=== PATIENT | female | born 1980 | race African-American/Black ===

== ENCOUNTER 2020-06-12 12:56 | Outpatient (REF) | payer OTHER, SELFPAY | END 2020-06-12 12:57 | disposition home or self-care (01) | LOC: HO.LAB 12:56 | PROVIDERS: Visit Provider Nurse Practitioner Family | DX: Z20.828 Contact with and (suspected) exposure to other viral communicable diseases (principal); J06.9 Acute upper respiratory infection, unspecified | CPT/HCPCS: U0003 ==

== ENCOUNTER 2020-08-29 07:56 | Emergency (ER) | payer OTHER, SELFPAY ==
--- NOTE | 2020-08-29 | ECG_ITS ---
Test Reason : CHEST PAIN Blood Pressure : / mmHG Vent. Rate : 094 BPM Atrial Rate : 094 BPM P-R Int : 134 ms QRS Dur : 076 ms QT Int : 380 ms P-R-T Axes : 059 021 041 degrees QTc Int : 475 ms Normal sinus rhythm Normal ECG When compared with ECG of 16-APR-2017 14:38, No significant change was found Referred By: Generic ED Physician Electronically Signed By:LULÚ GANDARA
[2020-08-29 08:17] VITALS: BP 136/79; PULSE 100; RESP 18; TEMP 36.8; O2SAT 100; BMI 33.4
--- NOTE | 2020-08-29 10:09 | ED.CHESTPAIN ---
HPI - Chest Pain General Chief Complaint: Chest Pain Stated Complaint: chest pain Time Seen by Provider: 08/29/20 10:09 Related Data Home Medications Medication Instructions Recorded Confirmed No Known Home Meds 06/12/20 06/12/20 Allergies Allergy/AdvReac Type Severity Reaction Status Date / Time No Known Allergies Allergy Verified 08/29/20 08:15 [facility] Past Medical History Medical History (Updated 08/29/20 @ 08:19 by Rossi Katz) No known health problems Social History Social History Alcohol intake: never Smoking Status: Current every day smoker Use of substances other than those prescribed or required for medical reasons: No Advance Directives: No Advance Directives Information Provided: No Physical Exam Vital Signs: Vital Signs: Last Vital Signs Temp 98.3 F 08/29/20 08:17 Pulse 100 08/29/20 08:17 Resp 18 08/29/20 08:17 BP 136/79 08/29/20 08:17 Pulse Ox 100 08/29/20 08:17 Body Mass Index 33.4 Course Course Course Narrative: 1000-This is a rapid medical exam. 40yo female here with constant chest pain since 0300 yesterday with left arm pain and heaviness. No SOB/cough, leg swelling or pain. Will need labs, CXR, EKG. Deferred HPI, ROS, and PE to primary provider. Discharge Plan Discharge Prescriptions: No Action No Known Home Meds RF: 0
--- NOTE | 2020-08-29 10:11 | XR_ITS ---
EXAMINATION: XR CHEST CLINICAL INFORMATION: Chest pain COMPARISON: None TECHNIQUE: 2 views of the chest were obtained. FINDINGS: No significant abnormality is noted involving the heart, lungs, mediastinum, bony thorax or soft tissues. XR/XR chest 2V IMPRESSION: Unremarkable chest examination.
[2020-08-29 10:44] LABS: MANUAL DIFF FLAG NO
[2020-08-29 10:47] LABS: Basophils Percent Auto 0.6 % (0-2); Eosinophils Absolute Auto 0.2 X10*3/uL (0.0-0.4); Eosinophils Percent Auto 3.6 % (0-4); Hematocrit 39.5 % (37-47); Hemoglobin 12.3 g/dl (12.0-16.0); Imm Gran Abs Auto 0.01 X10*3/uL (0.00-0.03); Imm Gran Pct Auto 0.2 % (0.0-0.4); Lymphocytes Absolute Auto 1.7 X10*3/uL (1.2-4.9); Lymphocytes Percent Auto 34.3 % (20-40); Mean Corpuscular HGB Conc 31.1 g/dl (31.0-35.0); Mean Corpuscular Hemoglobin 27.9 pg (27.0-33.0); Mean Corpuscular Volume 89.6 fL (80-98); Mean Platelet Volume 8.8 fL (9.4-12.3); Monocytes Absolute Auto 0.3 X10*3/uL (0.1-1.2); Monocytes Percent Auto 5.8 % (2-11); Neutrophils Absolute Auto 2.8 X10*3/uL (2.0-8.3); Neutrophils Percent Auto 55.5 % (45-73); Platelet Count 334 X10*3/uL (160-400); Red Blood Count 4.41 X10*6/uL (4.20-5.50); Red Cell Distribution Width 13.7 % (11.0-16.0)
[2020-08-29 11:10] LABS: Alanine Aminotransferase 15 U/L (0-31); Albumin Level 4.1 g/dL (3.5-5.0); Alkaline Phosphatase 64 U/L (39-117); Anion Gap 11 (12-20); Aspartate Amino Transferase 39 U/L (5-31); Bilirubin Direct < 0.2 mg/dL (0.0-0.5); Bilirubin Total 0.2 mg/dL (0.0-1.0); Blood Urea Nitrogen 12 mg/dL (9-16); Calcium 8.5 mg/dL (8.4-10.2); Carbon Dioxide 23 mmol/L (22-29); Chloride 107 mmol/L (96-108); Creatinine Clr Calc Pharmacy 108.6; Estimated Glomerular Filt Rate > 60; Glucose Random 80 mg/dL (60-115); Magnesium 2.2 mg/dL (1.6-2.6); Potassium 4.5 mmol/L (3.3-5.1); Sodium 136 mmol/L (135-145); Total Protein 7.3 g/dL (6.5-8.0)
[2020-08-29 11:16] LABS: Troponin-I High Sensitivity < 3.5 ng/L (<3.5-17.0)
[2020-08-29 14:00] VITALS: BP 122/72; PULSE 82; RESP 18; TEMP 36.9; O2SAT 100
--- NOTE | 2020-08-29 14:20 | PC.NURSE ---
patient a&ox3, skin warm/dry, laboratory monitor nsr 70-80, vitals stable, pt states she has continued chest pain and lt arm heaviness/tingling- denies any trauma. will continue to monitor.
--- NOTE | 2020-08-29 14:32 | ED_ITS ---
HPI - Chest Pain General Chief Complaint: Chest Pain Stated Complaint: chest pain Time Seen by Provider: 08/29/20 10:09 Source: patient Mode of arrival: ambulatory Limitations: no limitations History of Present Illness HPI narrative: Patient presents to ED for persistent chest pain since yesterday described as chest tightness. Patient denies any swelling on lower extremities, coughing, fever, chills, rash, itchy sensation of skin, sensation of throat closing, recent trauma to the chest, breast pain, nipple discharge, headache, or dizziness. Patient denies any pleuretic chest pain. patient denies any calf pain , recent surgery, recent long travel, control pills, or history of blood clots.. MD complaint: chest pain Related Data Home Medications Medication Instructions Recorded Confirmed No Known Home Meds 06/12/20 06/12/20 Allergies Allergy/AdvReac Type Severity Reaction Status Date / Time No Known Allergies Allergy Verified 08/29/20 08:15 Review of Systems Review of Systems: Yes all other systems are reviewed and are negative Constitutional: Constitutional: Reports as per HPI and Reports no additional constitutional complaints Eyes: Eyes: Reports as per HPI and Reports no additional eye complaints ENT: Reports system reviewed and no additional complaints, except as documented and Reports as per HPI Cardiovascular: Cardiovascular: Reports as per HPI, Reports no additional cardiovascular complaints and Reports chest pain Respiratory: Respiratory: Reports as per HPI and Reports no additional respiratory complaints Gastrointestinal: Gastrointestinal: Reports as per HPI and Reports no additional gastrointestinal complaints Genitourinary: Genitourinary: Reports no additional female genitourinary complaints and Reports as per HPI Musculoskeletal: Musculoskeletal: Reports no additional musculoskeletal complaints and Reports as per HPI Neurologic: Reports system reviewed and no additional complaints, except as documented and Reports as per HPI Psychiatric: Psychiatric: Reports no additional psychiatric complaints and Reports as per HPI [facility] Past Medical History Medical History No known health problems Social History Social History Alcohol intake: never Smoking Status: Current every day smoker Use of substances other than those prescribed or required for medical reasons: No Advance Directives: No Advance Directives Information Provided: No Physical Exam Vital Signs: Vital Signs: Last Vital Signs Temp 98.5 F 08/29/20 17:31 Pulse 79 08/29/20 17:31 Resp 18 08/29/20 17:31 BP 122/78 08/29/20 17:31 Pulse Ox 100 08/29/20 17:31 Body Mass Index 33.4 Const: General: cooperative, healthy appearing, comfortable, no acute distress, well developed, alert, awake and Physically active Orientation/consciousness: patient oriented x3 HENMT: Head: Yes normal to inspection, Yes No palpable skull fracture present, Yes normocephalic, Yes atraumatic and No abrasion Eyes: General: appearance normal, both eyes and all related structures Neck: Neck: Yes normal visual inspection, Yes full ROM, Yes no lymphad enopathy, Yes no meningeal signs, Yes trachea midline, Yes supple and No tender Chest: Chest palpation & inspection: normal inspection of the chest Resp: Effort & Inspection: normal respiratory effort and able to speak in complete sentences Auscultation: clear to auscultation bilaterally Cardio: Jugular venous distension: no JVD Heart sounds: S1 normal heart sound present and S2 normal heart sound present GI: Inspection: No abdominal wall ecchymosis Palpation (GI): Soft to palpa tion, not firm, nontender, no guarding and not rigid : General: No CVA tenderness and Yes no CVA tenderness Back/Spine/Pelvis: Back: no CVA tenderness, No CVA tenderness and No back tenderness Skin: General skin exam: no rashes or lesions noted and elasticity normal Neuro: General: patient oriented x3, no meningeal signs and CN's II-XI intact bilaterally Cranial nerves: Yes CN's II-XII intact bilaterally Extrem: Other: Extremities bilaterally negative for swelling, pitting edema, redness, or calf tenderness Psych: Appearance: grossly normal, well kempt and not disheveled Course Course Course Narrative: Initial troponin is negative and EKG is normal. Will do repeat troponin, COVID avid, and D-dimer to see patient at risk of PE. Patient further denies any chest pain on inspiration, is not tachycardic, and is not hypoxic. Patient is not on any control pills. Patient will also be given GI cocktail for possible GERD exacerbation. Reevaluation(s) Reevaluation #1: Patient's 2nd troponin after having symptoms since yesterday came back negative. Patient D-dimer negative. Patient's PERC score 0. Patient is safe for discharge. Covid swab negative. Time: 16:30 MDM - Chest Pain MDM Narrative Medical decision making narrative: Atypical Chest pain Lab Data Result diagrams: 08/29/20 10:39 08/29/20 10:39 Labs: Lab Results 08/29/20 08/29/20 08/29/20 Range/Units 10:39 10:39 10:39 WBC 5.0 (4.8-10.8) X10*3/uL RBC 4.41 (4.20-5.50) X10*6/uL Hgb 12.3 (12.0-16.0) g/dl Hct 39.5 (37-47) % MCV 89.6 (80-98) fL MCH 27.9 (27.0-33.0) pg MCHC 31.1 (31.0-35.0) g/dl RDW 13.7 (11.0-16.0) % Plt Count 334 (160-400) X10*3/uL MPV 8.8 L (9.4-12.3) fL Immature Gran % (Auto) 0.2 (0.0-0.4) % Neut % (Auto) 55.5 (45-73) % Lymph % (Auto) 34.3 (20-40) % Letcher % (Auto) 5.8 (2-11) % Eos % (Auto) 3.6 (0-4) % Baso % (Auto) 0.6 (0-2) % Lymph # (Auto) 1.7 (1.2-4.9) X10*3/uL Letcher # (Auto) 0.3 (0.1-1.2) X10*3/uL Eos # (Auto) 0.2 (0.0-0.4) X10*3/uL Baso # (Auto) 0.0 (0.0-0.2) X10*3/uL Abs Immat Gran (auto) 0.01 (0.00-0.03) X10*3/uL Absolute Neuts (auto) 2.8 (2.0-8.3) X10*3/uL Absolute Nucleated RBC 0.000 (0.0-0.012) X10*3/uL Nucleated RBC % (auto) 0.0 (0.0-0.2) /100WBC PT (10.8-13.0) SEC INR (0.9-1.1) APTT (24.1-38.0) SEC D-Dimer NG/ML Sodium 136 (135-145) mmol/L Potassium 4.5 (3.3-5.1) mmol/L Chloride 107 (96-108) mmol/L Carbon Dioxide 23 (22-29) mmol/L Anion Gap 11 L (12-20) BUN 12 (9-16) mg/dL Creatinine 0.85 (0.5-1.4) mg/dL Estim Creat Clear Calc 108.6 Estimated GFR > 60 Random Glucose 80 (60-115) mg/dL Calcium 8.5 (8.4-10.2) mg/dL Magnesium 2.2 (1.6-2.6) mg/dL Total Bilirubin 0.2 (0.0-1.0) mg/dL Direct Bilirubin < 0.2 (0.0-0.5) mg/dL AST 39 H (5-31) U/L ALT 15 (0-31) U/L Alkaline Phosphatase 64 (39-117) U/L Troponin I High Sens < 3.5 (<3.5-17.0) ng/L B-Natriuretic Peptide (<100) pg/mL Total Protein 7.3 (6.5-8.0) g/dL Albumin 4.1 (3.5-5.0) g/dL Lipase 35 (8-78) U/L COVID-19 (LARA) (Negative) COVID-19 Clin Com 08/29/20 08/29/20 08/29/20 Range/Units 15:16 15:16 15:16 WBC (4.8-10.8) X10*3/uL RBC (4.20-5.50) X10*6/uL Hgb (12.0-16.0) g/dl Hct (37-47) % MCV (80-98) fL MCH (27.0-33.0) pg MCHC (31.0-35.0) g/dl RDW (11.0-16.0) % Plt Count (160-400) X10*3/uL MPV (9.4-12.3) fL Immature Gran % (Auto) (0.0-0.4) % Neut % (Auto) (45-73) % Lymph % (Auto) (20-40) % Letcher % (Auto) (2-11) % Eos % (Auto) (0-4) % Baso % (Auto) (0-2) % Lymph # (Auto) (1.2-4.9) X10*3/uL Letcher # (Auto) (0.1-1.2) X10*3/uL Eos # (Auto) (0.0-0.4) X10*3/uL Baso # (Auto) (0.0-0.2) X10*3/uL Abs Immat Gran (auto) (0.00-0.03) X10*3/uL Absolute Neuts (auto) (2.0-8.3) X10*3/uL Absolute Nucleated RBC (0.0-0.012) X10*3/uL Nucleated RBC % (auto) (0.0-0.2) /100WBC PT 11.5 (10.8-13.0) SEC INR 1.0 (0.9-1.1) APTT 40.1 H (24.1-38.0) SEC D-Dimer < 200 NG/ML Sodium (135-145) mmol/L Potassium (3.3-5.1) mmol/L Chloride (96-108) mmol/L Carbon Dioxide (22-29) mmol/L Anion Gap (12-20) BUN (9-16) mg/dL Creatinine (0.5-1.4) mg/dL Estim Creat Clear Calc Estimated GFR Random Glucose (60-115) mg/dL Calcium (8.4-10.2) mg/dL Magnesium (1.6-2.6) mg/dL Total Bilirubin (0.0-1.0) mg/dL Direct Bilirubin (0.0-0.5) mg/dL AST (5-31) U/L ALT (0-31) U/L Alkaline Phosphatase (39-117) U/L Troponin I High Sens < 3.5 (<3.5-17.0) ng/L B-Natriuretic Peptide < 10 (<100) pg/mL Total Protein (6.5-8.0) g/dL Albumin (3.5-5.0) g/dL Lipase (8-78) U/L COVID-19 (LARA) Negative (Negative) COVID-19 Clin Com See Note ECG Data ECG #1: Interpretation: Normal Sinus Rhythm VEnt Rate 94. MI 134 QTC 475. Negative stemi Discharge Plan Discharge Clinical Impression: Atypical chest pain Patient Disposition: Home, Self-Care Instructions: Chest Pain (ED) Additional Instructions: Return to the ED for worsening chest pain, coughing up blood, swelling of lower extremities, calf pain, fever, chills, shortness of breath on exertion, or any other concerning symptoms. Prescriptions: No Action No Known Home Meds RF: 0 Referrals: Rosibel Gore MD [Primary Care Provider] - 2 days (Atypical chest pain. EKG is normal. Two troponins negative. D-dimer negative. Chest x-ray negative for pneumonia. COVID swab negative. BNP negative) Stand Alone Forms: Work/School Release Interventions: ED Discharge Assessment Last Done: 08/29/20 18:39 Discharge Date/Time: 08/29/20 18:40
[2020-08-29 14:54] LABS: Lipase 35 U/L (8-78)
[2020-08-29] MEDS: Lidocaine HCl Viscous 2 % 15 ML SOLUTION MUCOUS MEM (15:18)
[2020-08-29] MEDS: PHENobarb/Hyoscy/Atropine/Scop 10 ML ELIXIR PO (15:19)
[2020-08-29] MEDS: Magnesium Hydrox/Alum Hydrox 30 ML ORAL.SUSP 15 ML PO (15:19)
[2020-08-29] MEDS: Famotidine/PF 20 MG/2 ML VIAL IVPUSH (15:20)
[2020-08-29] MEDS: Ketorolac Tromethamine 30 MG/ML VIAL IVPUSH (15:20)
--- NOTE | 2020-08-29 15:24 | PC.NURSE ---
iv inserted, labs drawn, covid swab performed, pt medicated per order, panel monitor sinus maryann to nsr 60s-70s, will continue to monitor.
[2020-08-29] MEDS: 0.9 % Sodium Chloride 1,000 ML 999 ML IV (15:25)
[2020-08-29 15:33] LABS: Prothrombin Time 11.5 SEC (10.8-13.0)
[2020-08-29 15:36] LABS: D Dimer < 200 NG/ML; Partial Thromboplastin Time 40.1 SEC (24.1-38.0)
[2020-08-29 15:55] LABS: COVID-19 Test Negative (Negative)
[2020-08-29 15:56] LABS: Troponin-I High Sensitivity < 3.5 ng/L (<3.5-17.0)
[2020-08-29 17:18] LABS: B Type Natriuretic Peptide < 10 pg/mL (<100)
[2020-08-29 17:31] VITALS: BP 122/78; PULSE 79; RESP 18; TEMP 36.9; O2SAT 100
--- NOTE | 2020-08-29 17:49 | PC.NURSE ---
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
== END 2020-08-29 18:40 | disposition home or self-care (01) ==
PROVIDERS: Nurse Practitioner Family; Physician Assistant; Emergency Provider Emergency Medicine; PCP Internal Medicine
DX: R07.89 Other chest pain (principal); F17.200 Nicotine dependence, unspecified, uncomplicated; Z71.6 Tobacco abuse counseling; Z20.822 Contact with and (suspected) exposure to COVID-19
CPT/HCPCS: 36415; 71046; 80048; 80076; 83690; 83735; 83880; 84484; 85025; 85379; 85610; 85730; 87635; 93005; 96361; 96374; 96375; 99284; J1885

== ENCOUNTER 2020-11-04 16:53 | Emergency (ER) | payer OTHER, SELFPAY ==
--- NOTE | ~2020-11-04 | XR_ITS ---
EXAMINATION: PORTABLE CHEST 1 VIEW CLINICAL INFORMATION: palpitations . COMPARISON: 08/29/2020. TECHNIQUE: Portable frontal view of the chest was obtained. FINDINGS: The lungs are well expanded. No focal infiltrate, effusion, edema, or pneumothorax. Cardiac and mediastinal silhouettes are within normal limits for technique. No acute bony abnormality seen. XR/XR chest 1V IMPRESSION: No evidence of acute disease.
[2020-11-04 19:43] VITALS: BP 139/89; PULSE 90; RESP 18; TEMP 37.1; O2SAT 100; BMI 32.5
--- NOTE | 2020-11-04 19:45 | ECG_ITS ---
Test Reason : PALIPITATIONS Blood Pressure : / mmHG Vent. Rate : 082 BPM Atrial Rate : 082 BPM P-R Int : 152 ms QRS Dur : 080 ms QT Int : 402 ms P-R-T Axes : 059 020 043 degrees QTc Int : 469 ms Normal sinus rhythm Normal ECG When compared with ECG of 29-AUG-2020 08:12, No significant change was found Referred By: Generic ED Physician Electronically Signed By:LULÚ GANDARA
[2020-11-04 20:36] LABS: MANUAL DIFF FLAG NO
[2020-11-04 20:39] LABS: Basophils Percent Auto 0.5 % (0-2); Eosinophils Absolute Auto 0.2 X10*3/uL (0.0-0.4); Eosinophils Percent Auto 3.6 % (0-4); Hematocrit 38.4 % (37-47); Hemoglobin 11.8 g/dl (12.0-16.0); Imm Gran Abs Auto 0.02 X10*3/uL (0.00-0.03); Imm Gran Pct Auto 0.3 % (0.0-0.4); Lymphocytes Absolute Auto 2.2 X10*3/uL (1.2-4.9); Lymphocytes Percent Auto 34.9 % (20-40); Mean Corpuscular HGB Conc 30.7 g/dl (31.0-35.0); Mean Corpuscular Hemoglobin 27.6 pg (27.0-33.0); Mean Corpuscular Volume 89.9 fL (80-98); Mean Platelet Volume 8.8 fL (9.4-12.3); Monocytes Absolute Auto 0.4 X10*3/uL (0.1-1.2); Monocytes Percent Auto 5.8 % (2-11); Neutrophils Absolute Auto 3.4 X10*3/uL (2.0-8.3); Neutrophils Percent Auto 54.9 % (45-73); Platelet Count 366 X10*3/uL (160-400); Red Blood Count 4.27 X10*6/uL (4.20-5.50); Red Cell Distribution Width 13.4 % (11.0-16.0); White Blood Count 6.2 X10*3/uL (4.8-10.8)
[2020-11-04 20:59] LABS: Anion Gap 10 (12-20); Blood Urea Nitrogen 10 mg/dL (9-16); Calcium 8.6 mg/dL (8.4-10.2); Carbon Dioxide 24 mmol/L (22-29); Chloride 107 mmol/L (96-108); Creatinine Clr Calc Pharmacy 123.7; Estimated Glomerular Filt Rate > 60; Glucose Random 112 mg/dL (60-115); Potassium 3.8 mmol/L (3.3-5.1); Sodium 137 mmol/L (135-145)
[2020-11-04 21:04] LABS: Troponin-I High Sensitivity < 3.5 ng/L (<3.5-17.0)
--- NOTE | 2020-11-04 21:47 | ED_ITS ---
HPI - Arrhythmia/Palpitations General Chief Complaint: Arrhythmia/Palpitations Stated Complaint: Palpitations Time Seen by Provider: 11/04/20 21:47 Source: patient Mode of arrival: ambulatory Limitations: no limitations History of Present Illness HPI narrative: 40-year-old female who was otherwise healthy walked in to the emergency department for feeling palpitation. Patient was at work checked her blood pressure was higher than her baseline and heart rate was in the 120s, patient asked to go home, patient while she was home she felt palpitation again took her heart rate was 115, patient never had chest pain or shortness of breath. Patient came to the emergency department heart rate initially was in the 90s and blood pressure was 140/89. Patient declined any recent travel or prolonged immobilization, no lower extremity swelling or blood clots. Related Data Previous Rx's Medication Instructions Recorded bupropion HCl 150 mg tablet,12 hr 150 mg PO Q12H 90 Days #180 tab 10/23/20 sustained-release Allergies Allergy/AdvReac Type Severity Reaction Status Date / Time No Known Allergies Allergy Verified 11/04/20 19:42 Review of Systems Review of Systems: All other systems are reviewed and are negative Constitutional: Reports as per HPI and Reports no additional constitutional complaints Eyes: Reports as per HPI and Reports no additional eye complaints Reports system reviewed and no additional complaints, except as documented Cardiovascular: Reports as per HPI and Reports no additional cardiovascular comp laints Respiratory: Reports as per HPI and Reports no additional respiratory complaints Gastrointestinal: Reports as per HPI and Reports no additional gastrointestinal complaints Genitourinary: Reports no additional female genitourinary complaints Musculoskeletal: Reports no additional musculoskeletal complaints Skin/Breast: Reports system reviewed and no additional complaints, except as docu Psychiatric: Reports no additional psychiatric complaints Endocrine: Reports no additional endocrine complaints Hematologic/Lymphatic: Reports no additional hematologic/lymphatic complaints Allergic/Immunologic: Reports no additional allergic/immunologic complaints Reports system reviewed and no additional complaints, except as documented and Reports Abnormal speech present [facility] Past Medical History Medical History No known health problems Social History Social History Alcohol intake: never Smoking Status: Current every day smoker Advance Directives: No Advance Directives Information Provided: Yes Physical Exam Vital Signs: Vital Signs: Last Vital Signs Temp 98.7 F 11/04/20 19:43 Pulse 90 11/04/20 19:43 Resp 18 11/04/20 19:43 BP 139/89 11/04/20 19:43 Pulse Ox 100 11/04/20 19:43 Body Mass Index 32.5 Vital signs have been reviewed as appeared to be correct. Blood pressure normal. Heart rate normal. Respiration rate normal. Temperature normal. Oxygen saturation normal. Appearance: Alert. Oriented X3. No acute distress. Head: Normal external exam. Normocephalic. Atraumatic. No Moore signs noted. No raccoon eyes noted Eyes: PERRLA. EOMI. Conjunctiva and sclera normal. Eyelids normal. ENT: TM's Normal. Pharynx normal. Uvula midline. Moist mucous membranes. No trismus noted. No drooling noted. No muffled voice noted. Neck: Normal inspection. Neck supple. FROM. No adenopathy. Thyroid Normal. No meningeal signs. No neck mass noted. CVS: Normal heart rate and rhythm. Heart sound normal. No murmurs noted. Pulses normal throughout. Respiratory: No respiratory distress. Painless inspiration. Breath sounds normal. No wheezes/rales/rhonchi noted. Chest nontender. No accessory muscle u lolita noted or decreased air movement noted. Abdomen: Soft and nontender. Bowel sounds normal in all 4 quadrants. No distention noted. No organomegaly noted. No visible injury noted. Back: No CVA tenderness. Full range of motion noted. Skin: Skin warm and dry. Normal skin color. Normal skin turgor. No rashes/lesions/lacerations noted. Extremities: No lower extremity edema. Extremities exhibit normal range of motion. Extremities nontender. Neuro: Oriented X 3. No motor deficit. No sensory deficit. Reflexes normal. Course Course Course Narrative: Assessment and plan. 40-year-old female with otherwise healthy presented for evaluation of palpitation that is already resolved. Unremarkable EKG, unremarkable labs and electrolytes. Will reassure the patient patient will need to follow up with PCP for monitoring blood pressure. HEART score is 0 MDM - Arrhythmia/Palpitations Lab Data Attestation: I reviewed the patient's lab results. Result diagrams: 11/04/20 20:27 11/04/20 20:27 Labs: Lab Results 11/04/20 11/04/20 11/04/20 Range/Units 20:27 20:27 20:27 WBC 6.2 (4.8-10.8) X10*3/uL RBC 4.27 (4.20-5.50) X10*6/uL Hgb 11.8 L (12.0-16.0) g/dl Hct 38.4 (37-47) % MCV 89.9 (80-98) fL MCH 27.6 (27.0-33.0) pg MCHC 30.7 L (31.0-35.0) g/dl RDW 13.4 (11.0-16.0) % Plt Count 366 (160-400) X10*3/uL MPV 8.8 L (9.4-12.3) fL Immature Gran % (Auto) 0.3 (0.0-0.4) % Neut % (Auto) 54.9 (45-73) % Lymph % (Auto) 34.9 (20-40) % Kleberg % (Auto) 5.8 (2-11) % Eos % (Auto) 3.6 (0-4) % Baso % (Auto) 0.5 (0-2) % Lymph # (Auto) 2.2 (1.2-4.9) X10*3/uL Kleberg # (Auto) 0.4 (0.1-1.2) X10*3/uL Eos # (Auto) 0.2 (0.0-0.4) X10*3/uL Baso # (Auto) 0.0 (0.0-0.2) X10*3/uL Abs Immat Gran (auto) 0.02 (0.00-0.03) X10*3/uL Absolute Neuts (auto) 3.4 (2.0-8.3) X10*3/uL Absolute Nucleated RBC 0.000 (0.0-0.012) X10*3/uL Nucleated RBC % (auto) 0.0 (0.0-0.2) /100WBC Hold Blue Top SEE NOTE Sodium 137 (135-145) mmol/L Potassium 3.8 (3.3-5.1) mmol/L Chloride 107 (96-108) mmol/L Carbon Dioxide 24 (22-29) mmol/L Anion Gap 10 L (12-20) BUN 10 (9-16) mg/dL Creatinine 0.76 (0.5-1.4) mg/dL Estim Creat Clear Calc 123.7 Estimated GFR > 60 Random Glucose 112 D (60-115) mg/dL Calcium 8.6 (8.4-10.2) mg/dL Troponin I High Sens (<3.5-17.0) ng/L 11/04/20 Range/Units 20:27 WBC (4.8-10.8) X10*3/uL RBC (4.20-5.50) X10*6/uL Hgb (12.0-16.0) g/dl Hct (37-47) % MCV (80-98) fL MCH (27.0-33.0) pg MCHC (31.0-35.0) g/dl RDW (11.0-16.0) % Plt Count (160-400) X10*3/uL MPV (9.4-12.3) fL Immature Gran % (Auto) (0.0-0.4) % Neut % (Auto) (45-73) % Lymph % (Auto) (20-40) % Kleberg % (Auto) (2-11) % Eos % (Auto) (0-4) % Baso % (Auto) (0-2) % Lymph # (Auto) (1.2-4.9) X10*3/uL Kleberg # (Auto) (0.1-1.2) X10*3/uL Eos # (Auto) (0.0-0.4) X10*3/uL Baso # (Auto) (0.0-0.2) X10*3/uL Abs Immat Gran (auto) (0.00-0.03) X10*3/uL Absolute Neuts (auto) (2.0-8.3) X10*3/uL Absolute Nucleated RBC (0.0-0.012) X10*3/uL Nucleated RBC % (auto) (0.0-0.2) /100WBC Hold Blue Top Sodium (135-145) mmol/L Potassium (3.3-5.1) mmol/L Chloride (96-108) mmol/L Carbon Dioxide (22-29) mmol/L Anion Gap (12-20) BUN (9-16) mg/dL Creatinine (0.5-1.4) mg/dL Estim Creat Clear Calc Estimated GFR Random Glucose (60-115) mg/dL Calcium (8.4-10.2) mg/dL Troponin I High Sens < 3.5 (<3.5-17.0) ng/L Imaging Data Chest x-ray: Radiologist's impression: No evidence of acute disease. ECG Data Interpretation: Normal sinus rhythm at 82 beats per minutes, normal axis deviation, normal intervals, no ST-T changes. Discharge Plan Discharge Clinical Impression: Palpitations Patient Disposition: Home, Self-Care Instructions: Heart Palpitations (ED) Prescriptions: No Action bupropion HCl [Wellbutrin SR] 150 mg tablet sustained-release 12 hr 150 mg PO Q12H 90 Days Qty: 180 RF: 0 Referrals: Rosibel Gore MD [Primary Care Provider] - 2 days
[2020-11-04 21:54] VITALS: BP 154/85; PULSE 84; RESP 16; O2SAT 99
[2020-11-04 22:35] LABS: Magnesium 2.2 mg/dL (1.6-2.6)
[2020-11-04 22:43] VITALS: BP 147/88; PULSE 74; RESP 16; O2SAT 99
== END 2020-11-04 22:54 | disposition home or self-care (01) ==
PROVIDERS: Emergency Provider Emergency Medicine; PCP Internal Medicine
DX: R00.2 Palpitations (principal)
CPT/HCPCS: 36415; 71045; 80048; 83735; 84484; 85025; 93005; 99283

== ENCOUNTER 2021-04-15 13:43 | Outpatient (REF) | payer OTHER, SELFPAY | END 2021-04-15 13:44 | disposition home or self-care (01) | LOC: HO.LNP 13:43 | PROVIDERS: Visit Provider Physician Assistant Medical | DX: Z20.822 Contact with and (suspected) exposure to COVID-19 (principal) | CPT/HCPCS: U0003; U0005 ==

== ENCOUNTER 2021-12-02 12:24 | Outpatient (REF) | payer OTHER, SELFPAY ==
[2021-12-02 13:32] LABS: Influenza A PCR NEGATIVE (Negative); Influenza B PCR NEGATIVE (Negative); Resp Syncy Virus RNA Qual PCR NEGATIVE (Negative); SARS COV2 PCR INHOUSE NEGATIVE (Negative)
== END 2021-12-02 12:25 | disposition home or self-care (01) ==
LOC: HO.LNP 12:24
PROVIDERS: Visit Provider Internal Medicine
DX: Z20.822 Contact with and (suspected) exposure to COVID-19 (principal); R43.9 Unspecified disturbances of smell and taste
CPT/HCPCS: 0241U

== ENCOUNTER 2021-12-30 07:42 | Outpatient (REF) | payer OTHER, SELFPAY ==
--- NOTE | ~2021-12-30 | MM_ITS ---
EXAMINATION: MM SCREENING DIGITAL BREAST TOMOSYNTHESIS, BILATERAL CLINICAL INFORMATION: Screening. Asymptomatic. The lifetime risk of breast cancer based on the Tyrer-Cuzick Model is 8%. COMPARISON: Mammography: None TECHNIQUE: Digital breast tomosynthesis is performed in both the craniocaudal and mediolateral oblique views along with computer-aided detection (CAD). Synthesized 2D images are generated from the tomosynthesis. FINDINGS: There are scattered areas of fibroglandular density (ACR BI-RADS breast composition Category b). There are no significant masses, abnormal calcifications, or other abnormalities. MM/MM tomosynthesis screening BI IMPRESSION: There are no significant changes from prior study. ASSESSMENT: BI-RADS 1: Negative RECOMMENDATION: Routine annual mammography screening. This patient's information was entered into a reminder system with a target due date for their next mammogram.
== END 2021-12-30 07:43 | disposition home or self-care (01) ==
LOC: HO.MAMMO 07:42
PROVIDERS: Visit Provider Internal Medicine
DX: Z12.31 Encounter for screening mammogram for malignant neoplasm of breast (principal)
CPT/HCPCS: 77063; 77067

== ENCOUNTER 2022-01-09 15:24 | Outpatient (REF) | payer OTHER, SELFPAY ==
[2022-01-09 17:45] LABS: TSH reflex Free T4 0.43 uIU/mL (0.32-4.0)
[2022-01-14 16:05] LABS: Vitamin D 25-OH, D2 <4 ng/mL; Vitamin D 25-OH, D3 17 ng/mL; Vitamin D 25-OH, Total 17 ng/mL (30-100)
== END 2022-01-09 15:25 | disposition home or self-care (01) ==
LOC: HO.HMGCLDS 15:24
PROVIDERS: Visit Provider Internal Medicine
DX: E55.9 Vitamin D deficiency, unspecified (principal); R00.0 Tachycardia, unspecified
CPT/HCPCS: 36415; 82306; 84443

== ENCOUNTER 2022-06-24 13:30 | Outpatient (REF) | payer OTHER, SELFPAY ==
[2022-06-24 16:30] LABS: MANUAL DIFF FLAG NO
[2022-06-24 16:35] LABS: Basophils Percent Auto 0.7 % (0-2); Eosinophils Absolute Auto 0.1 X10*3/uL (0.0-0.4); Eosinophils Percent Auto 3.7 % (0-4); Hematocrit 38.6 % (37.0-47.0); Hemoglobin 11.9 g/dl (12.0-16.0); Lymphocytes Absolute Auto 1.1 X10*3/uL (1.2-4.9); Lymphocytes Percent Auto 40.4 % (20-40); Mean Corpuscular HGB Conc 30.8 g/dl (31.0-35.0); Mean Corpuscular Hemoglobin 27.4 pg (27.0-33.0); Mean Corpuscular Volume 88.9 fL (80.0-98.0); Monocytes Absolute Auto 0.3 X10*3/uL (0.1-1.2); Monocytes Percent Auto 9.4 % (2-11); Neutrophils Absolute Auto 1.2 x10*3/uL (2.0-8.3); Neutrophils Percent Auto 45.8 % (45-73); Platelet Count 296 X10*3/uL (160-400); Red Blood Count 4.34 X10*6/uL (4.20-5.50); Red Cell Distribution Width 13.4 % (11.0-16.0); White Blood Count 2.7 X10*3/uL (4.8-10.8)
[2022-06-24 16:45] LABS: Alanine Aminotransferase 20 U/L (0-31); Albumin Level 3.8 g/dL (3.5-5.0); Alkaline Phosphatase 64 U/L (39-117); Anion Gap 12 (12-20); Aspartate Amino Transferase 41 U/L (5-31); Bilirubin Total 0.2 mg/dL (0.0-1.0); Blood Urea Nitrogen 7 mg/dL (9-16); Calcium 8.4 mg/dL (8.4-10.2); Carbon Dioxide 25 mmol/L (22-29); Chloride 102 mmol/L (96-108); Estimated Glomerular Filt Rate > 60; Glucose Random 84 mg/dL (60-115); Potassium 4.2 mmol/L (3.3-5.1); Sodium 135 mmol/L (135-145); Total Protein 6.8 g/dL (6.5-8.0)
[2022-06-29 14:53] LABS: Vitamin D 25-OH, D2 <4 ng/mL; Vitamin D 25-OH, D3 10 ng/mL; Vitamin D 25-OH, Total 10 ng/mL (30-100)
== END 2022-06-24 13:31 | disposition home or self-care (01) ==
LOC: HO.HMGCLDS 13:30
PROVIDERS: PCP Internal Medicine; Visit Provider Internal Medicine
DX: E55.9 Vitamin D deficiency, unspecified (principal); E66.09 Other obesity due to excess calories; F33.9 Major depressive disorder, recurrent, unspecified
CPT/HCPCS: 36415; 80053; 82306; 85025

== ENCOUNTER 2023-01-22 12:30 | Outpatient (REF) | payer OTHER, SELFPAY ==
--- NOTE | ~2023-01-22 | MM_ITS ---
EXAMINATION: MM SCREENING DIGITAL BREAST TOMOSYNTHESIS, BILATERAL CLINICAL INFORMATION: Screening. Asymptomatic. The lifetime risk of breast cancer based on the Tyrer-Cuzick Model is 11%. COMPARISON: Mammography: This study is compared with the prior mammogram from 2021. TECHNIQUE: Digital breast tomosynthesis is performed in both the craniocaudal and mediolateral oblique views along with computer-aided detection (CAD). Synthesized 2D images are generated from the tomosynthesis. FINDINGS: The breasts are almost entirely fatty (ACR BI-RADS breast composition Category a). There are no significant masses, abnormal calcifications, or other abnormalities. MM/MM tomosynthesis screening BI IMPRESSION: No mammographic evidence of malignancy. ASSESSMENT: BI-RADS BI-RADS 1 - Negative RECOMMENDATION: Routine annual mammography screening. 1 year F/U This patient's information was entered into a reminder system with a target due date for their next mammogram.
== END 2023-01-22 12:31 | disposition home or self-care (01) ==
LOC: HO.MAMMO 12:30
PROVIDERS: PCP Internal Medicine; Visit Provider Internal Medicine
DX: Z12.31 Encounter for screening mammogram for malignant neoplasm of breast (principal)
CPT/HCPCS: 77063; 77067

== ENCOUNTER → 2023-01-22 12:45 | Outpatient (BNV) | payer OTHER, SELFPAY | PROVIDERS: PCP Internal Medicine; Visit Provider Radiology Diagnostic Radiology | DX: Z12.31 Encounter for screening mammogram for malignant neoplasm of breast (principal) | CPT/HCPCS: 77063; 77067 ==

== ENCOUNTER 2024-01-24 12:44 | Outpatient (REF) | payer OTHER, SELFPAY | END 2024-01-24 12:45 | disposition home or self-care (01) | LOC: HO.MAMMO 12:44 | PROVIDERS: PCP Internal Medicine; Visit Provider Internal Medicine | DX: Z12.31 Encounter for screening mammogram for malignant neoplasm of breast (principal) | CPT/HCPCS: 77063; 77067 ==

== ENCOUNTER → 2024-01-24 12:45 | Outpatient (BNV) | payer OTHER, SELFPAY | PROVIDERS: PCP Internal Medicine; Visit Provider Radiology Diagnostic Radiology | DX: Z12.31 Encounter for screening mammogram for malignant neoplasm of breast (principal) | CPT/HCPCS: 77063; 77067 ==

== ENCOUNTER 2024-06-20 13:29 | Outpatient (AMB) | payer OTHER, SELFPAY ==
--- NOTE | 2024-06-20 13:30 | A.OFFPC_ITS ---
Vital Signs 06/20/24 13:31 Height 5 ft 9 in Weight 221 lb BMI 32.6 BP 124/82 Blood Pressure Location Lt brachial Position Sitting Pulse 82 Pulse Source Pulse Oximeter Pulse Oximetry (%) 98 Oxygen Delivery Method Room Air Intake Visit Reasons: Difficulty Swallowing Allergies No Known Allergies Allergy (Verified 06/20/24 13:35) Medication List - Last Reconciled 06/20/24 by Rosibel Gore MD No Known Home Meds Tobacco use date assessed: 06/20/24 Dental Screening Dental Screen Date: 06/20/24 Did you have a dental visit in the last 12 months?: Yes Did you have a dental problem in the last 6 months where you did not have access to dental care?: No Was dental information given to patient?: Patient has dentist HPI Difficulty Swallowing HPI Details Chief Complaint The patient presents with difficulty swallowing both liquids and solids over the past couple of months. Assessment and Plan 43-year-old female presenting with dysph agia affecting both liquids and solids consistently over the past few months. The dysphagia comes and goes, requiring conscious effort to swallow, and at times results in choking, especially with liquids. No sore throat or other concerning symptoms reported. The patient also noted recent weight gain linked to multiple recent family bereavements causing significant stress. A barium swallow test is ordered to evaluate structural abnormalities, with a gastroenterology consult to assess further if needed. 1. Recent Significant Family Stressors The patient reports a significant emotional impact from recent family deaths that may contribute to increased stress and weight gain. Emotional support and stress management strategies should be considered after addressing the swallowing issues. Further psychosocial counseling might be beneficial pending resolution of physical symptoms. 2. Dysphagia The patient exhibits signs of dysphagia, affecting the ingestion of both solids and liquids, with reports of choking predominantly with liquids. An evaluative barium swallow study is indicated to rule out anatomical or functional abnormalities. A referral to a site physician is made to consider possible esophagoscopy to identify any underlying issues, potentially ruling out neuro genic causes if suggested by the test. Problem List - Dysphagia - Recent significant family stressors Patient Instructions - Proceed with the barium swallow study as ordered to assess swallowing difficulties. - Follow-up with a site physician ap pointment to evaluate swallowing function and consider further diagnostic tests such as an esophagoscopy. - Monitor stress levels and try to ident yaakov and engage in stress-reducing activities or support systems. Report any unsual emotional distress or health concerns. - Await further instructions following t he results of the tests and subsequent specialist consultations. [facility] Medical History Contact with and (suspected) exposure to other viral communicable diseases No known health problems Social History Housing: House Alcohol intake: never Patient Tobacco Use Status: Current everyday Tobacco user e-Cigarette/Vaping Use: Never Used service: No Current occupational status: employed Cognitive needs: No Hearing needs: No Vision needs: No Questionnaire PHQ-9 Over the last 2 weeks, how often have you been bothered by any of the following problems? 1. Little interest or pleasure in doing things: several days 2. Feeling down, depressed, or hopeless: several days 3. Trouble falling or staying asleep, or sleeping too much: several days 4. Feeling tired or having little energy: several days 5. Poor appetite or overeating: several days 6. Feeling bad about yourself - or that you are a failure or have let yourself or your family down: several days 7. Trouble concentrating on things, such as reading the newspaper or watching television: several days 8. Moving or speaking so slowly that other people could have noticed. Or the opposite - being so fidgety or restless that you have been moving around a lot more than usual: not at all 9. Thoughts that you would be better off or of hurting yourself in some way: not at all Total score: 7 Depression Screening Interpretation: Negative Depression Screening Done: Yes 56727 - PHQ-9 Billing: Yes Source: Developed by Drs. Mega Agarwal, Jayashree Kimball, Luisito Beach and colleagues, with an educational nestor from [employer]. Thrive Questionnaire Date Thrive assessed: 06/20/24 I am a: Patient What is your living situation today?: I have a steady place to live Within the past 12 months, did the food you bought not last and you didn't have the money to get more?: Never true Within the past 12 months, did you worry whether your food would run out before you got money to buy more?: Never true Do you have trouble paying for medicines?: No Do you have trouble getting transportation to medical appointments?: No Do you have trouble paying your heating and electricity bill?: No Do you have trouble taking care of your child, family member or friend?: No Do you have trouble with day-to-day activities such as bathing, preparing meals, shopping, managing finances, etc.?: No Are you currently unemployed and looking for a job?: No Are you interested in more education?: I choose not to answer this question Please select the resources that you would like help with: None Currently or been in a relationship where the following occur: No concerns reported THRIVE Score: 0 AUDIT C Alcohol Use Questionnaire (AUDIT-C) 1. How often do you have a drink containing alcohol?: 2-4 times a month 2. How many drinks containing alcohol do you have on a typical day when you are drinking?: 1 or 2 3. How often do you have six or more drinks on one occasion?: Never Total Score: 2 Score Reviewed/Action Taken: Yes CORINE-7 AMB Questionnaire CORINE-7 Date CORINE - 7 assessed: 06/20/24 Feeling nervous, anxious, or on edge: 1 = Several days Not being able to stop or control worryin = Several days Worrying too much about different things: 1 = Several days Trouble relaxin = Several days Being so restless that it is hard to sit still: 0 = Not at all Becoming easily annoyed or irritable: 1 = Several days Feeling afraid as if something awful might happen: 1 = Several days Total CORINE-7 score (0-4 normal; 5-9 mild; 10-14 moderate; 15-21 severe): 6 Source: Developed by Drs. Mega Agarwal, Jayashree Kimball, Luisito Beach and colleagues, with an educational nestor from [employer]. Review of Systems Const Denies chills and Denies fever(s) ENT Denies epistaxis and Denies nasal discharge Card Denies chest pain Resp Denies chest congestion, Denies cough and Denies hemoptysis GI Denies diarrhea and Denies nausea Skin/Breast Denies rash Neuro Reports no additional complaints Psych Reports no additional complaints Endo Reports no additional complaints Physical exam (Primary Care) Vital Signs: Last Vital Signs Pulse 82 06/20/24 13:31 BP 124/82 06/20/24 13:31 Pulse Ox 98 06/20/24 13:31 Oxygen Delivery Method Room Air 06/20/24 13:31 BMI result Body Mass Index 32.6 Tobacco/Smoking Status: Tobacco use Status Tobacco use date assessed 06/20/24 06/20/24 13:31 Patient Tobacco Use Status Current everyday Tobacco 06/20/24 13:31 e-Cigarette/Vaping Use Never Used 06/20/24 13:31 PHQ-9: PHQ-9 Score PHQ-9: Total score 7 06/20/24 13:35 Depression Screening Interpretation: Negative Thrive Assessment: Date of Thrive Assessment Date Thrive assessed 06/20/24 06/20/24 13:31 Currently or been in a relationship where the following occur: No concerns reported Const General: cooperative, comfortable and no acute distress Orientation/consciousness: patient oriented x3 HENMT Other: Throat exam is normal Head: Yes normocephalic Eyes General: appearance normal, both eyes and all related structures Neck Neck: Yes supple Resp Effort & Inspection: normal respiratory effort, no cough and no stridor Cardio Rhythm: regular rhythm Heart sounds: S1 normal heart sound present and S2 normal heart sound present Skin General skin exam: turgor normal Neuro General: patient oriented x3, tone normal and moves all extremities Extrem Right lower extremity: no edema Left lower extremity: no edema Coding Level of Care Code Est Pt Level 4 (53158) Diagnoses Oral phase dysphagia R13.11 Dysphagia type: oral phase Additional Codes PHQ-9 - 46635 - PHQ-9 Billing: Yes ([id number]) Assessment & Plan Assessment & Plan (1) Difficulty swallowing: Code(s): R13.10 - Dysphagia, unspecified Category: Medical Qualifiers: Dysphagia type: oral phase Qualified Code(s): R13.11 - Dysphagia, oral phase Plan Chief Complaint The patient presents with difficulty swallowing both liquids and solids over the past couple of months. Assessment and Plan 43-year-old female presenting with dysphagia affecting both liquids and solids consistently over the past few months. The dysphagia comes and goes, requiring conscious effort to swallow, and at times results in choking, especially with liquids. No sore throat or other concerning symptoms reported. The patient also noted recent weight gain linked to multiple recent family bereavements causing significant stress. A barium swallow test is ordered to evaluate structural abnormalities, with a gastroenterology consult to assess further if needed. 1. Recent Significant Family Stressors The patient reports a significant emotional impact from recent family deaths that may contribute to increased stress and weight gain. Emotional support and stress management strategies should be considered after addressing the swallowing issues. Further psychosocial counseling might be beneficial pending resolution of physical symptoms. 2. Dysphagia The patient exhibits signs of dysphagia, affecting the ingestion of both solids and liquids, with reports of choking predominantly with liquids. An evaluative barium swallow study is indicated to rule out anatomical or functional abnormalities. A referral to a site physician is made to consider possible esophagoscopy to identify any underlying issues, potentially ruling out neurogenic causes if suggested by the test. Problem List - Dysphagia - Recent significant family stressors Patient Instructions - Proceed with the barium swallow study as ordered to assess swallowing difficulties. - Follow-up with a site physician appointment to evaluate swallowing function and consider further diagnostic tests such as an esophagoscopy. - Monitor stress levels and try to identify and engage in stress-reducing activities or support systems. Report any unsual emotional distress or health concerns. - Await further instructions following the results of the tests and subsequent specialist consultations. Orders: Orders [place] Modified Barium Swallow Today R13.10 - Dysphagia, unspecified Referrals Gastroenterology Referral R13.10 - Dysphagia, unspecified
[2024-06-20 13:31] VITALS: BP 124/82; PULSE 82; O2SAT 98; BMI 32.6
== END 2024-06-20 14:34 | disposition home or self-care (01) ==
PROVIDERS: PCP Internal Medicine; Visit Provider Internal Medicine
DX: R13.11 Dysphagia, oral phase (principal)

== ENCOUNTER → 2024-06-20 13:29 | Outpatient (BNVA) | payer OTHER, SELFPAY | PROVIDERS: PCP Internal Medicine; Visit Provider Internal Medicine | DX: R13.11 Dysphagia, oral phase (principal) | CPT/HCPCS: 96127; 99212 ==

== ENCOUNTER 2024-08-16 14:20 | Outpatient (REF) | payer OTHER, SELFPAY ==
--- NOTE | ~2024-08-16 | FL_ITS ---
EXAMINATION: Modified Barium Swallow CLINICAL INFORMATION: Dysphagia COMPARISON: None TECHNIQUE: Modified barium swallow was performed under lateral fluoroscopy with patient in standing position. Barium mixed with solids and liquids of different consistencies was administered by the speech pathologist. Examination was recorded in the fluoroscopy suite. FINDINGS: Trace laryngeal penetration was seen with thin consistency barium. No aspiration was observed. FLUOROSCOPY TIME: 51 seconds Number of Spot Images: N/A DOSE AREA PRODUCT: 372 uGy-m2 (microgray-meter squared) FL/FL Modified Barium Swallow IMPRESSION: 1. Trace laryngeal penetration was seen with thin consistency barium. No aspiration was observed. Refer to the speech therapy report for further clarification This procedure was performed by Mike Castillo PA-C, and supervised by Dr. Toney Electronically signed by: Jose Toney MD 08/21/2024 05:00 PM [facility]
--- NOTE | 2024-08-16 15:25 | MHC.SL.IMP ---
Date of Plan of Treatment: 08/16/24 Onset of Symptoms/Illness: 06/16/24 Date Treatment Started: 08/16/24 Admitting Diagnosis: Dysphagia Primary Speech & Language Diagnosis: R13.13 Pharyngeal Phase Dysphagia Reason for Today's Visit: 23229 Modified Barium Swallow Study Pre-evaluation Dietary Consistencies: Regular Pre-evaluation Liquid Consistency: Thin Pre-evaluation Medication Administration: Whole with Liquid Medical History: Modified Barium Swallow Study Fluoroscopic Evaluation of Swallowing Function CPT Code 90183 Evaluation Year: 2024 Reason for Study: Patient reporting discomfort and effortful swallowing. Referring Physician: Rosibel Gore MD Evaluating Clinician: Giuliana Diaz MA, CCC-HYDROTEL OPERATOR Study Number: 1 Patient Name: Gricelda James Status: Outpatient, Ambulatory Age: 44 Gender: Female Medical History N/A Current (pre-evaluation) Intake/Diet: Route: PO Diet Grade: Regular Liquid Consistencies: Thin Pre-Study Functional Oral Intake Scale (FOIS): 7- Total oral intake with no restrictions Pain: None reported at time of study SUBJECTIVE: Patient is a 44 year old female presenting with difficulty swallowing both solids and liquids consistently over the past few months. Patient reports ?feeling it go all the way down as she swallows.? She also reports discomfort and needing to exert more effort to swallow. Patient denied odynophagia and choking/coughing with PO intake. She is eating an unmodified diet. Oral Motor Exam Facial Symmetry: Symmetrical Mouth Occlusion: Normal Oral-Facial Teeth Characteristics: Intact/Normal Oral-Facial Lip Pucker Description: Normal Oral-Facial Smile (Lips) Description: Normal Oral-Facial Puff Cheeks Description: Normal Tongue Size: Normal Tongue Excursion Description: Normal Tongue Range of Movement Description: Normal Tongue Speed of Movement Description: Normal Tongue Strength of Movement (against opposing pressure): Normal Tongue Movement Characteristics: Normal/Absent Food and Liquid Trials: Oral Impairment: Lip Closure: Did not test Oral Impairment: Tongue Control During Bolus Hold: 1=Escape to lateral buccal cavity/floor of mouth (FOM) Oral Impairment: Bolus Preparation/Mastication: 0=Timely and efficient chewing and mashing Oral Impairment: Bolus Transport/Lingual Motion: 1= Delayed initiation of tongue motion Oral Impairment: Oral Residue: 1=Trace residue lining oral structures Oral Impairment:Initiation of Pharyngeal Swallow: 1=Bolus head in valleculae Pharyngeal Impairment: Soft Palate Elevation: 0=No bolus between soft palate (SP)/pharyngeal wall (PW) Pharyngeal Impairment: Laryngeal Elevation: 1=Partial thyroid cartilage/arytenoids to epiglottic petiole movement Pharyngeal Impairment: Anterior Hyoid Excursion: 1=Partial anterior movement Pharyngeal Impairment: Epiglottic Movement: 0=Complete inversion Pharyngeal Impairment: Laryngeal Vestibular Closure:: 1=Incomplete: narrow column air/contrast in laryngeal vestibule Pharyngeal Impairment: Pharyngeal Stripping Wave: 0=Present: complete Pharyngeal Impairment: Pharyngeal Contraction: Did not test Pharyngeal Impairment: Pharyngoesophageal Segment Openin=Complete distension and complete duration: no obstruction of flow Pharyngeal Impairment: Tongue Base (TB) Retraction: 0=No contrast between tongue base and posterior pharyngeal wall Pharyngeal Impairment: Pharyngeal Residue: 0=Complete pharyngeal clearance Pharyngeal Impairment: Esophageal Clearance Upright Position: Did not test Impressions and Recommendations OBJECTIVE: Time-out: performed at 15:00 Evaluation Start: 14:30; Stop: 14:35 Patient Positioning: Standing Viewing Planes: LATERAL ONLY Contrast: MBSImP? Standardized Protocol using commercially prepared, standardized Barium viscosities, including: Varibar? THIN LIQUID (40% w/v, <15 cps) , Varibar? PUDDING (40% w/v, <5722-8027 cps) , 1/2 Shortbread Cookie (1 x1 x.25 ) MBSImP ID: [id number] [facility]: Lip closure for intraoral bolus containment could not be assessed due to logistical reasons not related to physiologic impairment. Tongue control during bolus hold allowed bolus escape to the lateral buccal cavity/floor of mouth. Bolus preparation and mastication resulted in timely and efficient chewing and mashing. Bolus transport/lingual motion demonstrated delayed initiation of tongue motion. Oral residue was a trace, lining oral structures. Initiation of the pharyngeal swallow occurred when the bolus head was in the valleculae. Soft palate elevation resulted in no bolus between the soft palate and the pharyngeal wall. Laryngeal elevation was decreased, with partial superior movement of the thyroid cartilage/partial approximation of the arytenoids to the epiglottic petiole. Anterior hyoid excursion demonstrated partial anterior movement. Epiglottic movement resulted in complete inversion. Laryngeal vestibular closure was incomplete, with a narrow column of air/contrast noted within the laryngeal vestibule at the height of the swallow. Pharyngeal stripping wave was present and complete. Pharyngeal contraction could not be determined due to logistical reasons not related to physiologic impairment. Pharyngoesophageal segment opening demonstrated partial distension/partial duration, with partial obstruction of bolus flow. Tongue base retraction allowed no contrast between the retracted tongue base and the posterior pharyngeal wall. Pharyngeal residue was not present. There was complete pharyngeal clearance. Esophageal clearance in the upright position could not be assessed due to logistical reasons not related to physiologic impairment. Oral Impairment Score: 3 (absence of score, component 1) Pharyngeal Impairment Score: 4 (absence of score, component 13) Esophageal Impairment Score: --- (absence of score, component 17) Laryngeal Penetration and Aspiration: Neither penetration nor aspiration was observed in today's study with Cookie, Puree. Penetration was observed in today's study. Thin Contrast entered the airway, remained above the vocal folds, and was ejected from the airway. ASSESSMENT: This exam was performed by the radiologist and the speech pathologist. Patient was standing for lateral view only. She fed herself without difficulty and trialed thin (individual cup sips, rapid cup sips), puree, and regular solid consistencies. Mastication was timely and efficient, with overall good oral clearance. Posterior lingual movement was delayed in initiation, but with brisk movement. Trace lingual residue cleared with subsequent swallows. Pharyngeal swallow trigger initiated as the bolus head reached the valleculae. No evidence of nasopharyngeal reflux. Partial laryngeal elevation with complete epiglottic inversion. Complete pharyngeal clearance. On sip of thin liquid, there was singular episode of flash penetration above the vocal folds, which immediately cleared. No further episodes of penetration. No evidence of aspiration during this exam. Partial distention noted through the pharyngoesophageal segment (PES) opening. Liquid Intake Recommendation: Thin Liquid Intake Strategies: Unrestricted Dietary Recommendations: Regular Medication Administration: Whole with Liquid Please contact the pharmacy regarding appropriate crushable or liquid drug formulations that are available whenever modified delivery is recommended. Compensatory Strategies Recommended: Sitting Upright (90 deg), Small Bites and Sips, Rate of Ingestion Change Supervision during eating and or drinking: None Needed Recommendation for Speech Therapy: NA:Typical Evaluation Text Comment: Intake Recommendations: Route: PO Diet Grade: Regular Liquid Consistencies: Thin Post-Study Functional Oral Intake Scale (FOIS): 7- Total oral intake with no restrictions Singular episode of flash penetration. No evidence of aspiration. Good oral and pharyngeal clearance. Suggested Referrals: The patient might benefit from a referral to: Gastroenterology Indication for Referral: MBSS noted partial distention through the PES; Patient reporting discomfort with swallowing, feeling everything as it goes down? Therapy Recommendations: Further speech therapy for the treatment of dysphagia is not indicated at this time, as patient?s oral and pharyngeal swallow is deemed to be functional based on observations made during this exam. Patient may continue with an unrestricted diet (regular texture solids and thin liquids). Recommend G.I. consult to further investigate patient?s symptoms (feeling discomfort as food goes ?down?). Prognosis for Improvement: The prognosis for the patient to meet nutritional needs by mouth is excellent based on degree of impairment. Clinician - Supplemental, Miscellaneous Communication: It is important to note MBSS objective studies are snapshots in time and Patient function might vary with factors such as time of day or concomitant medical conditions. For this reason, the final treatment plan for this patient should rest with their medical care team. Additional recommendations should be considered with the totality of the Patient in mind. Thank for the opportunity to participate in the care of this patient. If you have any questions about the content of this report, please contact the [facility] at [facility]. Education: Education regarding findings from today's study and plans for therapy were provided to Patient only through Verbal Instruction. Understanding was expressed by the Patient only. Die Stamper Clinician/Clinical Fellow: No Supervisory Statement: N/A Speech Language Pathologist: Giuliana Diaz M.A., [facility]-HYDROTEL OPERATOR
== END 2024-08-16 14:21 | disposition home or self-care (01) ==
LOC: HO.XRAY 14:20
PROVIDERS: Visit Provider Internal Medicine
DX: R13.10 Dysphagia, unspecified (principal)
CPT/HCPCS: 74230; 92611

== ENCOUNTER → 2024-08-16 14:30 | Outpatient (BNV) | payer OTHER, SELFPAY | PROVIDERS: Visit Provider Physician Assistant Surgical | DX: R13.10 Dysphagia, unspecified (principal) | CPT/HCPCS: 74230 ==

== ENCOUNTER 2024-08-23 08:30 | Outpatient (AMB) | payer OTHER, SELFPAY ==
[2024-08-23 08:34] VITALS: BP 120/90; PULSE 77; RESP 16; TEMP 36.9; O2SAT 99; BMI 33.7
--- NOTE | 2024-08-23 08:34 | A.OFFPC_ITS ---
Vital Signs 08/23/24 08:34 Height 5 ft 9 in Weight 228 lb BMI 33.7 BP 120/90 H Blood Pressure Location Lt brachial Position Sitting Respiration 16 Pulse 77 Pulse Source Pulse Oximeter Temp 98.4 F Temp Source Oral Pulse Oximetry (%) 99 Oxygen Delivery Method Room Air Intake Visit Reasons: F/U Barium swallow Allergies No Known Allergies Allergy (Verified 08/23/24 08:34) Medication List - Last Reconciled 08/23/24 by Rosibel Gore MD No Known Home Meds Tobacco use date assessed: 08/23/24 Dental Screening Dental Screen Date: 08/23/24 Did you have a dental visit in the last 12 months?: No Did you have a dental problem in the last 6 months where you did not have access to dental care?: No Was dental information given to patient?: Patient has dentist HPI F/U Barium swallow HPI Details Patient is a 44-year-old female came in today to have follow-up appointment on difficulty swallowing liquids Dysphagia The patient exhibits signs of dysphagia, affecting the ingestion of both solids and liquids, with reports of choking predominantly with liquids. An evaluative barium swallow study is indicated to rule out anatomical or functional abnorm alities. A referral to a outside solar sales consultant was made to consider possible esophagoscopy to identify any underlying issues, potentially ruling out neurogenic causes if suggested by the test was also considered Patient had modified barium swallow 22nd of this month Which showed trace laryngeal penetration with thin consistency barium. No aspiration was observed Patient was instructed to avoid thin liquids, she can use Thick-it if needed I have also placed referral to land clearer Patient has a BMI of 33.7 and would like to discuss weight loss medications As per insurance requirement she need to try phentermine before they can approve injectables I have discussed the side effect of phentermine including palpitations It can also cause anxiety. Patient still want to try the medication spite of risk Problem List - Cricopharyngeal Achalasia - obesity Patient Instructions - Avoid swallowing large volumes of liqu ids to minimize coughing episodes. - Consider using liquid thickening agent s to improve swallowing comfort. - Follow up with appointments for gastro enterological evaluation and an ENT consultation as discussed. - Monitor for any severe symptoms such a s inability to swallow or significant discomfort, and seek medical attention if they occur. - Initiate lifestyle modifications inclu ding increased physical activity and dietary management as part of phentermine treatment for weight management. - Monitor for side effects of phentermin e, such as palpitations or anxiety, and discontinue use if they occur. - Keep a record of food intake and consu lt online resources to manage daily caloric intake effectively. Once medication is picked up book a follow-up appointment for refill in month Patient will get back to me on which ENT specialist she would like to see Review of Systems - Respiratory: Reports coughing associat ed with liquid intake. - Gastrointestinal: Reports difficulty s wallowing liquids and a sensation of pressure in the neck. 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: Alert awake oriented x3 motor sensory intact Skin: Normal turgor [facility] Medical History Contact with and (suspected) exposure to other viral communicable diseases No known health problems Social History Housing: House Alcohol intake: never Patient Tobacco Use Status: Former Tobacco user e-Cigarette/Vaping Use: Never Used service: No Current occupational status: employed Cognitive needs: No Hearing needs: No Vision needs: No Questionnaire PHQ-9 Over the last 2 weeks, how often have you been bothered by any of the following problems? 1. Little interest or pleasure in doing things: not at all 2. Feeling down, depressed, or hopeless: not at all 3. Trouble falling or staying asleep, or sleeping too much: not at all 4. Feeling tired or having little energy: not at all 5. Poor appetite or overeating: not at all 6. Feeling bad about yourself - or that you are a failure or have let yourself or your family down: not at all 7. Trouble concentrating on things, such as reading the newspaper or watching t elevision: not at all 8. Moving or speaking so slowly that other people could have noticed. Or the opposite - being so fidgety or restless that you have been moving around a lot more than usual: not at all 9. Thoughts that you would be better off or of hurting yourself in some way: not at all Total score: 0 Depression Screening Interpretation: Negative Depression Screening Done: Yes 74055 - PHQ-9 Billing: Yes Source: Developed by Drs. Mega Agarwal, Jayashree Kimball, Luisito Becah and colleagues, with an educational nestor from [employer]. Thrive Questionnaire Date Thrive assessed: 08/20/24 I am a: Patient What is your living situation today?: I have a steady place to live Within the past 12 months, did the food you bought not last and you didn't have the money to get more?: Never true Within the past 12 months, did you worry whether your food would run out before you got money to buy more?: Never true Do you have trouble paying for medicines?: No Do you have trouble getting transportation to medical appointments?: No Do you have trouble paying your heating and electricity bill?: No Do you have trouble taking care of your child, family member or friend?: No Do you have trouble with day-to-day activities such as bathing, preparing meals, shopping, managing finances, etc.?: No Are you currently unemployed and looking for a job?: No Are you interested in more education?: No Please select the resources that you would like help with: None Currently or been in a relationship where the following occur: No concerns reported THRIVE Score: 0 AUDIT C Alcohol Use Questionnaire (AUDIT-C) 1. How often do you have a drink containing alcohol?: Monthly or less 2. How many drinks containing alcohol do you have on a typical day when you are drinking?: 1 or 2 3. How often do you have six or more drinks on one occasion?: Never Total Score: 1 Score Reviewed/Action Taken: Yes CORINE-7 AMB Questionnaire CORINE-7 Date CORINE - 7 assessed: 08/23/24 Feeling nervous, anxious, or on edge: 0 = Not at all Not being able to stop or control worryin = Not at all Worrying too much about different things: 0 = Not at all Trouble relaxin = Not at all Being so restless that it is hard to sit still: 0 = Not at all Becoming easily annoyed or irritable: 0 = Not at all Feeling afraid as if something awful might happen: 0 = Not at all Total CORINE-7 score (0-4 normal; 5-9 mild; 10-14 moderate; 15-21 severe): 0 Source: Developed by Drs. Mega Agarwal, Jayashree Kimball, Luisito Beach and colleagues, with an educational nestor from [employer]. CORINE-7 Assessment Billing CORINE-7 Assessment Tool: CORINE-7 Assessment 24287 Physical exam (Primary Care) BMI result Body Mass Index 33.7 Tobacco/Smoking Status: Tobacco use Status Tobacco use date assessed 08/23/24 08/23/24 08:36 Patient Tobacco Use Status Current everyday Tobacco 08/23/24 08:36 e-Cigarette/Vaping Use Never Used 08/23/24 08:36 PHQ-9: PHQ-9 Score PHQ-9: Total score 0 08/23/24 08:36 Depression Screening Interpretation: Negative Thrive Assessment: Date of Thrive Assessment Date Thrive assessed 08/20/24 08/23/24 08:36 Currently or been in a relationship where the following occur: No concerns reported Coding Level of Care Code Est Pt Level 3 (22133) Complex EM visit Add On G2211 Diagnoses Cricopharyngeal achalasia K22.0 Class 1 obesity due to excess calories without serious comorbidity with body mass index (BMI) of 33.0 to 33.9 in adult E66.811; E66.09; Z68.33 Obesity classification: adult class 1 (BMI 30 - 34.9) Serious obesity comorbidity presence: without serious comorbidity Body mass index: BMI 33.0-33.9 Additional Codes PHQ-9 - 78359 - PHQ-9 Billing: Yes ([id number]) CORINE-7 Assessment Billing - CORINE-7 Assessment Tool: CORINE-7 Assessment 16256 ([id number]) Assessment & Plan Assessment & Plan (1) Cricopharyngeal achalasia: Code(s): K22.0 - Achalasia of cardia Category: Medical (2) Obesity due to excess calories: Code(s): E66.09 - Other obesity due to excess calories Category: Medical Qualifiers: Obesity classification: adult class 1 (BMI 30 - 34.9) Serious obesity comorbidity presence: without serious comorbidity Body mass index: BMI 33.0- 33.9 Qualified Code(s): E66.811 - Obesity, class 1; E66.09 - Other obesity due to excess calories; Z68.33 - Body mass index [BMI] 33.0-33.9, adult Plan Patient is a 44-year-old female came in today to have follow-up appointment on difficulty swallowing liquids Dysphagia The patient exhibits signs of dysphagia, affecting the ingestion of both solids and liquids, with reports of choking predominantly with liquids. An evaluative barium swallow study is indicated to rule out anatomical or functional abnormal ities. A referral to a outside solar sales consultant was made to consider possible esophagoscopy to identify any underlying issues, potentially ruling out neurogenic causes if suggested by the test was also considered Patient had modified barium swallow of this month Which showed trace laryngeal penetration with thin consistency barium. No aspiration was observed Patient was instructed to avoid thin liquids, she can use Thick-it if needed I have also placed referral to land clearer Patient has a BMI of 33.7 and would like to discuss weight loss medications As per insurance requirement she need to try phentermine before they can approve injectables I have discussed the side effect of phentermine including palpitations It can also cause anxiety. Patient still want to try the medication spite of risk Problem List - Cricopharyngeal Achalasia - obesity Patient Instructions - Avoid swallowing large volumes of liquids to minimize coughing episodes. - Consider using liquid thickening agents to improve swallowing comfort. - Follow up with appointments for gastroenterological evaluation and an ENT consultation as discussed. - Monitor for any severe symptoms such as inability to swallow or significant discomfort, and seek medical attention if they occur. - Initiate lifestyle modifications including increased physical activity and dietary management as part of phentermine treatment for weight management. - Monitor for side effects of phentermine, such as palpitations or anxiety, and discontinue use if they occur. - Keep a record of food intake and consult online resources to manage daily caloric intake effectively. Once medication is picked up book a follow-up appointment for refill in month Patient will get back to me on which ENT specialist she would like to see Medications: New phentermine must administer 2 hours after breakfast 15 mg PO DAILY 30 caps 0RF
== END 2024-08-23 09:07 | disposition home or self-care (01) ==
PROVIDERS: PCP Internal Medicine; Visit Provider Internal Medicine
DX: K22.0 Achalasia of cardia (principal); E66.811 Obesity, class 1; E66.09 Other obesity due to excess calories; Z68.33 Body mass index [BMI] 33.0-33.9, adult

== ENCOUNTER → 2024-08-23 08:30 | Outpatient (BNVA) | payer OTHER, SELFPAY | PROVIDERS: PCP Internal Medicine; Visit Provider Internal Medicine | DX: K22.0 Achalasia of cardia (principal); E66.811 Obesity, class 1; E66.09 Other obesity due to excess calories; Z68.33 Body mass index [BMI] 33.0-33.9, adult; Z71.3 Dietary counseling and surveillance | CPT/HCPCS: 96127; 99212 ==

== ENCOUNTER 2024-09-22 07:49 | Outpatient (AMB) | payer OTHER, SELFPAY ==
[2024-09-22 07:56] VITALS: BP 108/82; PULSE 90; RESP 15; TEMP 36.4; O2SAT 99; BMI 32.8
--- NOTE | 2024-09-22 07:56 | A.OFFPC_ITS ---
Vital Signs 09/22/24 07:56 Height 5 ft 9 in Weight 222 lb BMI 32.8 BP 108/82 Blood Pressure Location Rt brachial Position Sitting Respiration 15 Pulse 90 Pulse Source Pulse Oximeter Temp 97.5 F Temp Source Oral Pulse Oximetry (%) 99 Oxygen Delivery Method Room Air Intake Visit Reasons: 4 week med follow up Allergies No Known Allergies Allergy (Verified 09/22/24 07:56) Medication List - Last Reconciled 09/22/24 by Rosibel Gore MD phentermine 15 mg PO DAILY Tobacco use date assessed: 09/22/24 Dental Screening Dental Screen Date: 09/22/24 Did you have a dental visit in the last 12 months?: No Did you have a dental problem in the last 6 months where you did not have access to dental care?: No Was dental information given to patient?: No HPI 4 week med follow up HPI Details Physical exam appointment and medication refill - The patient is a 44-year-old female pr esenting with concerns regarding weight management and medication adherence. - Initiated on a 15 mg dosage of a phent ermine medication one month ago, resulting in a 6-pound weight loss, indicating progress. - Expresses a need to adjust the medicat ion timing for perceived efficacy, while maintaining the current dosage to avoid side effects. 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 - Plan for comprehensive blood work to m onitor health status, with a focus on checking for conditions with familial diabetes context. Health Maintenance - Weight management through medication a s part of obesity management regime. - Referral to Speech Pathology for consu ltation and potential intervention. - Recommendation to update routine physi catherine and OB-[employer]ER exams. - Scheduled laboratory evaluations inclu ding CBC, metabolic profile, blood sugar, cholesterol, vitamin D, B12, thyroid panel, and urinalysis. Employment - Works at [employer]; prefers healthcare a ccess separate from work environment for personal reasons. Diagnostic results - Weight recorded: 222 lbs from prior 22 8 lbs. - Routine blood work ordered: CBC, metab olic profile, sugar, cholesterol, vitamin D, B12, thyroid panel, and urinalysis. Patient Instructions - Continue taking phentermine 15 mg becky y, monitor weight monthly. - Schedule appointments for overdue phys ical and OB-[employer]ER AND [employer]ER exams. - Undergo recommended laboratory tests. - Seek referral to Speech Pathology for evaluation. Review of Systems - General: No fever no chills - Neurological: No headaches no dizzin ess - Ear nose throat: No sore throat no hearing difficulty no ear pain - Cardiovascular: No syncope, no chest pain, no palpitations - Gastrointestinal: No nausea vomiting or diarrhea - Endocrine: No polyuria polydipsia no heat intolerance - Genitourinary: No dysuria - Skin: No new complaints Physical Exam General: Cooperative, healthy appearing, comfortable, no acute distress Orientation: Patient oriented x3 Limitations: None Head: Normal to inspection Ears: Within normal limit visually Nose: Normal external nose present Face and sinus: Normal facial exam Eyes: Appearance normal, extraocular movement intact pupils reactive Neck: Normal visual inspection and supple Respiratory: Normal respiratory effort and able to speak in complete sentences. Clear to auscultation, no stridor Cardiovascular: S1 and S2 Breast exam declined by the patient GI: Normal to inspection. Soft to palpation and nontender Skin: Turgor normal, no acute findings, no rashes, no skin problems Neuro: Patient oriented x3, motor sensory intact, balance intact, tandem pass, able to walk on a straight line, heel to toe Extremities: Normal to inspection, no swelling of the ankles, joints are within normal limit, no knee pain, , good range of motion [facility] Medical History Contact with and (suspected) exposure to other viral communicable diseases No known health problems Social History Housing: House Alcohol intake: never Patient Tobacco Use Status: Former Tobacco user e-Cigarette/Vaping Use: Never Used service: No Current occupational status: employed Cognitive needs: No Hearing needs: No Vision needs: No Questionnaire Thrive Questionnaire Date Thrive assessed: 08/20/24 I am a: Patient What is your living situation today?: I have a steady place to live Within the past 12 months, did the food you bought not last and you didn't have the money to get more?: Never true Within the past 12 months, did you worry whether your food would run out before you got money to buy more?: Never true Do you have trouble paying for medicines?: No Do you have trouble getting transportation to medical appointments?: No Do you have trouble paying your heating and electricity bill?: No Do you have trouble taking care of your child, family member or friend?: No Do you have trouble with day-to-day activities such as bathing, preparing meals, shopping, managing finances, etc.?: No Are you currently unemployed and looking for a job?: No Are you interested in more education?: No Please select the resources that you would like help with: None Currently or been in a relationship where the following occur: No concerns reported THRIVE Score: 0 CORINE-7 AMB Questionnaire CORINE-7 Date CORINE - 7 assessed: 08/23/24 Source: Developed by Drs. Mega Agarwal, Jayashree Kimball, Luisito Beach and colleagues, with an educational nestor from [employer]. Physical exam (Primary Care) Vital Signs: Last Vital Signs Temp 97.5 F 09/22/24 07:56 Pulse 90 09/22/24 07:56 Resp 15 09/22/24 07:56 BP 108/82 09/22/24 07:56 Pulse Ox 99 09/22/24 07:56 Oxygen Delivery Method Room Air 09/22/24 07:56 BMI result Body Mass Index 32.8 Tobacco/Smoking Status: Tobacco use Status Tobacco use date assessed 09/22/24 09/22/24 07:58 Patient Tobacco Use Status Former Tobacco user 09/22/24 07:58 e-Cigarette/Vaping Use Never Used 09/22/24 07:58 Thrive Assessment: Date of Thrive Assessment Date Thrive assessed 08/20/24 09/22/24 07:58 Currently or been in a relationship where the following occur: No concerns reported Coding Level of Care Code Est Pt Level 3 (49700) Est Pt Prev Care 40-64y(16991) Diagnoses Encounter for general adult medical examination with abnormal findings Z00.01 Class 1 obesity due to excess calories without serious comorbidity with body mass index (BMI) of 33.0 to 33.9 in adult E66.811; E66.09; Z68.33 Body mass index: BMI 33.0-33.9 Obesity classification: adult class 1 (BMI 30 - 34.9) Serious obesity comorbidity presence: without serious comorbidity Vitamin D deficiency E55.9 Oral phase dysphagia R13.11 Dysphagia type: oral phase Cricopharyngeal achalasia K22.0 Assessment & Plan Assessment & Plan (1) Encounter for general adult medical examination with abnormal findings: Code(s): Z00.01 - Encounter for general adult medical examination with abnormal findings Category: Medical (2) Obesity due to excess calories: Code(s): E66.09 - Other obesity due to excess calories Category: Medical Qualifiers: Body mass index: BMI 33.0-33.9 Obesity classification: adult class 1 (BMI 30 - 34.9) Serious obesity comorbidity presence: without serious comorbidity Qualified Code(s): E66.811 - Obesity, class 1; E66.09 - Other obesity due to excess calories; Z68.33 - Body mass index [BMI] 33.0-33.9, adult (3) Vitamin D deficiency: Code(s): E55.9 - Vitamin D deficiency, unspecified Category: Medical (4) Difficulty swallowing: Code(s): R13.10 - Dysphagia, unspecified Category: Medical Qualifiers: Dysphagia type: oral phase Qualified Code(s): R13.11 - Dysphagia, oral phase (5) Cricopharyngeal achalasia: Code(s): K22.0 - Achalasia of cardia Category: Medical Plan Physical exam appointment and medication refill - The patient is a 44-year-old female presenting with concerns regarding weight management and medication adherence. - Initiated on a 15 mg dosage of a phentermine medication one month ago, resulting in a 6-pound weight loss, indicating progress. - Expresses a need to adjust the medication timing for perceived efficacy, while maintaining the current dosage to avoid side effects. 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 - Plan for comprehensive blood work to monitor health status, with a focus on checking for conditions with familial diabetes context. Health Maintenance - Weight management through medication as part of obesity management regime. - Referral to Speech Pathology for consultation and potential intervention. 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 - Scheduled laboratory evaluations including CBC, metabolic profile, blood sugar, cholesterol, vitamin D, B12, thyroid panel, and urinalysis. Employment - Works at [employer]; prefers healthcare access separate from work environment for personal reasons. Diagnostic results - Weight recorded: 222 lbs from prior 228 lbs. - Routine blood work ordered: CBC, metabolic profile, sugar, cholesterol, vitamin D, B12, thyroid panel, and urinalysis. Patient Instructions - Continue taking phentermine 15 mg daily, monitor weight monthly. - Schedule appointments for overdue physical and OB-[employer] AS[employer]BLER AND CURER exams. - Undergo recommended laboratory tests. - Seek referral to Speech Pathology for evaluation. Orders: Orders Comprehensive [place]. Panel Fast Today E55.9 - Vitamin D deficiency, unspecified, E66.09 - Other obesity due to excess calories, E66.811 - Obesity, class 1, K22.0 - Achalasia of cardia, R13.11 - Dysphagia, oral phase, Z00.01 - Encounter for general adult medical examination with abnormal findings, Z68.33 - Body mass index [BMI] 33.0-33.9, adult Lipid Panel Today E55.9 - Vitamin D deficiency, unspecified, E66.09 - Other obesity due to excess calories, E66.811 - Obesity, class 1, K22.0 - Achalasia of cardia, R13.11 - Dysphagia, oral phase, Z00.01 - Encounter for general adult medical examination with abnormal findings, Z68.33 - Body mass index [BMI] 33.0- 33.9, adult Vitamin B12 Today E55.9 - Vitamin D deficiency, unspecified, E66.09 - Other obesity due to excess calories, E66.811 - Obesity, class 1, K22.0 - Achalasia of cardia, R13.11 - Dysphagia, oral phase, Z00.01 - Encounter for general adult medical examination with abnormal findings, Z68.33 - Body mass index [BMI] 33.0- 33.9, adult TSH reflex Free T4 Today E55.9 - Vitamin D deficiency, unspecified, E66.09 - Other obesity due to excess calories, E66.811 - Obesity, class 1, K22.0 - Achalasia of cardia, R13.11 - Dysphagia, oral phase, Z00.01 - Encounter for general adult medical examination with abnormal findings, Z68.33 - Body mass index [BMI] 33.0-33.9, adult UA CC w/rflx Micro + Cult Today E55.9 - Vitamin D deficiency, unspecified, E66.09 - Other obesity due to excess calories, E66.811 - Obesity, class 1, K22.0 - Achalasia of cardia, R13.11 - Dysphagia, oral phase, Z00.01 - Encounter for general adult medical examination with abnormal findings, Z68.33 - Body mass index [BMI] 33.0-33.9, adult Complete Blood Count Auto Diff Today E55.9 - Vitamin D deficiency, unspecified, E66.09 - Other obesity due to excess calories, E66.811 - Obesity, class 1, K22.0 - Achalasia of cardia, R13.11 - Dysphagia, oral phase, Z00.01 - Encounter for general adult medical examination with abnormal findings, Z68.33 - Body mass index [BMI] 33.0-33.9, adult Vitamin D 25-OH (D2 and D3) Today E55.9 - Vitamin D deficiency, unspecified, E66.09 - Other obesity due to excess calories, E66.811 - Obesity, class 1, K22.0 - Achalasia of cardia, R13.11 - Dysphagia, oral phase, Z00.01 - Encounter for general adult medical examination with abnormal findings, Z68.33 - Body mass index [BMI] 33.0-33.9, adult Referrals RADIO TECHNICIAN Referral Z01.419 - Encounter for gynecological examination (general) (routine) without abnormal findings Speech and Hearing Referral K22.0 - Achalasia of cardia Medications: Refilled phentermine must administer 2 hours after breakfast 15 mg PO DAILY 30 caps 0RF
== END 2024-09-22 08:35 | disposition home or self-care (01) ==
PROVIDERS: PCP Internal Medicine; Visit Provider Internal Medicine
DX: Z00.01 Encounter for general adult medical examination with abnormal findings (principal); R13.11 Dysphagia, oral phase; Z68.32 Body mass index [BMI] 32.0-32.9, adult; E66.811 Obesity, class 1; Z68.33 Body mass index [BMI] 33.0-33.9, adult; E55.9 Vitamin D deficiency, unspecified; K22.0 Achalasia of cardia

== ENCOUNTER → 2024-09-22 07:49 | Outpatient (BNVA) | payer OTHER, SELFPAY | PROVIDERS: PCP Internal Medicine; Visit Provider Internal Medicine | DX: Z00.01 Encounter for general adult medical examination with abnormal findings (principal); E66.811 Obesity, class 1; E66.09 Other obesity due to excess calories; Z68.33 Body mass index [BMI] 33.0-33.9, adult; E55.9 Vitamin D deficiency, unspecified; R13.11 Dysphagia, oral phase; K22.0 Achalasia of cardia | CPT/HCPCS: 99212; 99396 ==

== ENCOUNTER 2024-10-06 12:40 | Outpatient (AMB) | payer OTHER, SELFPAY ==
--- NOTE | 2024-10-06 12:41 | MHC.OFFVIS ---
Intake Visit Reasons: dysphagia Intake Note: Gricelda presents as a telehealth today for Dysphagia. CC: States that she has been having issues with her swallowing. Never had a EGD or COLO. Allergies No Known Allergies Allergy (Verified 10/06/24 12:41) HPI Comments Details: 44 y.o F with no significant PMH who was referred for dysphagia. Pt here as a televisit. Reports sx started suddenly in Nov. Has dysphagia to both liquids and solids. Unless she chews food really well, feels that she is swallowing a rock. No abd pain, N/V. No regurgitation. No unintentional weight loss. No recent travel. No tick bite hx. No food allergy. Tried 14 days of omeprazole back when sx started which helped with pyrosis and bloating. Recently quit smoking. Rare etOH use. [facility] Medical History Contact with and (suspected) exposure to other viral communicable diseases No known health problems Social History Housing: House Alcohol intake: never Patient Tobacco Use Status: Former Tobacco user e-Cigarette/Vaping Use: Never Used service: No Current occupational status: employed Cognitive needs: No Hearing needs: No Vision needs: No Review of Systems Const All systems reviewed & are unremarkable except as noted in HPI and below Physical Exam Vital Signs: phone visit Telehealth Telehealth Telehealth Platform: Telephone Location of provider rendering services: practice address Location of patient: address on file Patient Identification confirmed using: Name, : Yes Telehealth method: voice only Patient verbally consented to treatment: Yes Patient verbally consented to billing insurance company: Yes Patient informed of any privacy concerns related to visit: Yes Minutes spent on Phone/Video with Pt.: 12 Assessment & Plan Assessment & Plan (1) Difficulty swallowing: Code(s): R13.10 - Dysphagia, unspecified Category: Medical Qualifiers: Dysphagia type: oral phase Qualified Code(s): R13.11 - Dysphagia, oral phase Plan DDx include esophageal web, stricture, dysmotility, EoE. Plan: - Start empiric omeprazole 20 once daily x 8-12 weeks - EGD to be booked - Barium swallow Follow up after egd Orders: Orders [place] barium swallow Today R13.11 - Dysphagia, oral phase Medications: New omeprazole 20 mg PO DAILY 90 days 90 caps 0RF Coding Level of Care Code Tele New Pt Level 4 (38870) Diagnoses Oral phase dysphagia R13.11 Dysphagia type: oral phase
== END 2024-10-06 13:59 | disposition home or self-care (01) ==
LOC: HO.HGI 12:40
PROVIDERS: PCP Internal Medicine; Visit Provider Internal Medicine
DX: R13.11 Dysphagia, oral phase (principal)
CPT/HCPCS: 99204

== ENCOUNTER 2024-10-17 07:47 | Outpatient (REF) | payer OTHER, SELFPAY ==
[2024-10-17 08:13] LABS: MANUAL DIFF FLAG NO
[2024-10-17 08:56] LABS: Basophils Percent Auto 0.5 % (0-2); Eosinophils Absolute Auto 0.2 X10*3/uL (0.0-0.4); Eosinophils Percent Auto 4.3 % (0-4); Hematocrit 41.3 % (37.0-47.0); Hemoglobin 13.4 g/dl (12.0-16.0); Imm Gran Abs Auto 0.01 X10*3/uL (0.00-0.03); Imm Gran Pct Auto 0.3 % (0.0-0.4); Lymphocytes Absolute Auto 1.6 X10*3/uL (1.2-4.9); Lymphocytes Percent Auto 40.5 % (20-40); Mean Corpuscular HGB Conc 32.4 g/dl (31.0-35.0); Mean Corpuscular Hemoglobin 28.6 pg (27.0-33.0); Mean Corpuscular Volume 88.1 fL (80.0-98.0); Mean Platelet Volume 8.6 fL (9.4-12.3); Monocytes Absolute Auto 0.2 X10*3/uL (0.1-1.2); Monocytes Percent Auto 5.1 % (2-11); Neutrophils Percent Auto 49.3 % (45-73); Platelet Count 303 X10*3/uL (160-400); Red Blood Count 4.69 X10*6/uL (4.20-5.50); Red Cell Distribution Width 11.9 % (11.0-16.0)
[2024-10-17 09:13] LABS: Appearance Urine Clear; Color Urine Yellow; Glucose Urine UA Negative (Negative); Leukocyte Esterase Urine Negative (Negative); Nitrite Urine Negative (Negative); PH 6.5 (5.0-9.0); UMIC TRIGGER UACC YES; Urine Blood Small (1+) (Negative); Urine Ketones Negative (Negative); Urine Protein Negative (Neg-Trace)
[2024-10-17 09:19] LABS: Bacteria Urine None Seen (None Seen); Hyaline Casts Urine 0-2 /LPF (0-2); Squamous Epithelial Cell Urine 0-2 /HPF (0-2); WBC Urine 0-5 /HPF (0-5)
[2024-10-17 09:48] LABS: Alanine Aminotransferase 26 U/L (0-31); Alkaline Phosphatase 65 U/L (39-117); Anion Gap 6 (12-20); Aspartate Amino Transferase 58 U/L (5-31); Bilirubin Total 0.4 mg/dL (0.0-1.0); Blood Urea Nitrogen 10 mg/dL (9-16); Calcium 9.2 mg/dL (8.4-10.2); Carbon Dioxide 25 mmol/L (22-29); Chloride 113 mmol/L (96-108); Cholesterol 172 mg/dL (<200); Estimated Glomerular Filt Rate > 60; Glucose Fasting 88 mg/dL (60-99); HDL Cholesterol 53 mg/dL (>40); LDL Cholesterol Calculated 109 mg/dL (<100); Sodium 140 mmol/L (135-145); Total Protein 7.2 g/dL (6.5-8.0); Triglycerides 53 mg/dL (<150)
[2024-10-17 10:05] LABS: TSH reflex Free T4 1.18 uIU/mL (0.32-4.0)
[2024-10-17 10:10] LABS: Vitamin B12 689 pg/mL (200-900)
[2024-10-21 15:38] LABS: Vitamin D 25-OH, D2 <4 ng/mL; Vitamin D 25-OH, D3 13 ng/mL; Vitamin D 25-OH, Total 13 ng/mL (30-100)
== END 2024-10-17 07:48 | disposition home or self-care (01) ==
LOC: HO.LAB 07:47
PROVIDERS: PCP Internal Medicine; Visit Provider Internal Medicine
DX: Z00.01 Encounter for general adult medical examination with abnormal findings (principal); E66.811 Obesity, class 1; E66.09 Other obesity due to excess calories; E55.9 Vitamin D deficiency, unspecified; R13.11 Dysphagia, oral phase; K22.0 Achalasia of cardia; Z68.33 Body mass index [BMI] 33.0-33.9, adult
CPT/HCPCS: 36415; 80053; 80061; 81001; 82306; 82607; 84443; 85025

== ENCOUNTER 2024-10-20 13:19 | Outpatient (AMB) | payer OTHER, SELFPAY ==
[2024-10-20 13:27] VITALS: BP 132/90; PULSE 82; O2SAT 100; BMI 32.6
--- NOTE | 2024-10-20 13:27 | A.OFFPC_ITS ---
Vital Signs 10/20/24 13:27 Height 5 ft 9 in Weight 220 lb 8 oz BMI 32.6 BP 132/90 H Blood Pressure Location Lt brachial Position Sitting Pulse 82 Pulse Source Pulse Oximeter Pulse Oximetry (%) 100 Oxygen Delivery Method Room Air Intake Visit Reasons: PE Allergies No Known Allergies Allergy (Verified 10/20/24 13:28) Medication List - Last Reconciled 10/20/24 by Rosibel Gore MD omeprazole 20 mg PO DAILY 90 days phentermine 15 mg PO DAILY Tobacco use date assessed: 10/20/24 Dental Screening Dental Screen Date: 10/20/24 Did you have a dental visit in the last 12 months?: Yes Did you have a dental problem in the last 6 months where you did not have access to dental care?: No Was dental information given to patient?: Patient has dentist HPI PE HPI Details History - The patient is a 44-year-old female pr esenting with concerns related to weight control while on phentermine therapy. Despite adherence to medication protocols, the patient has experienced no significant weight changes or appetite suppression. - Current medication adherence was modif ied to noon-isis due to meal timing; yet, effectiveness remains unsubstantial. - Routine laboratory work reveals slight ly low white blood cell count and persistent yet non-progressive elevation in liver enzymes, matching past results from 2021. - Vitamin D deficiency is an ongoing iss ue, with supplementation expected. - The patient has been monitoring her he alth actively, displaying concern over slight variations in laboratory outcomes and previous vitamin D deficiency. Problem List - Obesity - Low white blood cell count (Leukopenia ) - Elevated liver enzymes - Vitamin D deficiency Patient Instructions - Increase the dose of phentermine to 37 .5 mg as advised. - Continue taking omeprazole as prescrib ed. - Begin taking vitamin D supplements onc e prescription is received. - Schedule a follow-up appointment in ab out four weeks for reassessment. - Monitor any changes in appetite or ashley e effects from the medication adjustment. Review of Systems - General: No fever no chills - Neurological: No headaches no dizziness - Ear nose throat: No sore throat no hearing difficulty no ear pain - Cardiovascular: No syncope, no chest pain, no palpitations - Gastrointestinal: No nausea vomiting or diarrhea - Endocrine: No polyuria polydipsia no heat intolerance - Genitourinary: No dysuria , no blood in urine Physical Exam General: No acute distress HEENT: No acute findings Neck: Supple Respiratory system: Able to talk in full sentences, no audible wheeze Cardiovascular: S1-S2 regular in rate and rhythm, no palpitations Gastrointestinal: No pain Extremities: No new findings INSTRUCTIONAL COORDINATOR: Alert awake oriented x3 motor sensory intact Skin: Normal turgor [facility] Medical History Contact with and (suspected) exposure to other viral communicable diseases No known health problems Social History Housing: House Alcohol intake: never Patient Tobacco Use Status: Former Tobacco user e-Cigarette/Vaping Use: Never Used service: No Current occupational status: employed Cognitive needs: No Hearing needs: No Vision needs: No Questionnaire PHQ-9 Over the last 2 weeks, how often have you been bothered by any of the following problems? 06910 - PHQ-9 Billing: Patient declined-do not bill Source: Developed by Drs. Mega Agarwal, Jayashree Kimball, Luisito Beach and colleagues, with an educational nestor from [employer]. Thrive Questionnaire Date Thrive assessed: 10/20/24 I am a: Patient What is your living situation today?: I have a steady place to live Within the past 12 months, did the food you bought not last and you didn't have the money to get more?: Never true Within the past 12 months, did you worry whether your food would run out before you got money to buy more?: Never true Do you have trouble paying for medicines?: No Do you have trouble getting transportation to medical appointments?: No Do you have trouble paying your heating and electricity bill?: No Do you have trouble taking care of your child, family member or friend?: No Do you have trouble with day-to-day activities such as bathing, preparing meals, shopping, managing finances, etc.?: No Are you currently unemployed and looking for a job?: No Are you interested in more education?: No Please select the resources that you would like help with: None Currently or been in a relationship where the following occur: No concerns reported THRIVE Score: 0 AUDIT C Alcohol Use Questionnaire (AUDIT-C) 1. How often do you have a drink containing alcohol?: Monthly or less 2. How many drinks containing alcohol do you have on a typical day when you are drinking?: 1 or 2 3. How often do you have six or more drinks on one occasion?: Never Total Score: 1 Score Reviewed/Action Taken: Yes CORINE-7 AMB Questionnaire CORINE-7 Date CORINE - 7 assessed: 08/23/24 Source: Developed by Drs. Mega Agarwal, Jayashree Kimball, Luisito Beach and colleagues, with an educational nestor from [employer]. Physical exam (Primary Care) Vital Signs: Last Vital Signs Pulse 82 10/20/24 13:27 BP 132/90 H 10/20/24 13:27 Pulse Ox 100 10/20/24 13:27 Oxygen Delivery Method Room Air 10/20/24 13:27 BMI result Body Mass Index 32.6 Tobacco/Smoking Status: Tobacco use Status Tobacco use date assessed 10/20/24 10/20/24 13:30 Patient Tobacco Use Status Former Tobacco user 10/20/24 13:30 e-Cigarette/Vaping Use Never Used 10/20/24 13:30 Thrive Assessment: Date of Thrive Assessment Date Thrive assessed 10/20/24 10/20/24 13:30 Currently or been in a relationship where the following occur: No concerns reported Coding Level of Care Code Est Pt Level 3 (16062) Diagnoses Class 1 obesity due to excess calories without serious comorbidity with body mass index (BMI) of 33.0 to 33.9 in adult E66.811; E66.09; Z68.33 Obesity classification: adult class 1 (BMI 30 - 34.9) Serious obesity comorbidity presence: without serious comorbidity Body mass index: BMI 33.0-33.9 Vitamin D deficiency E55.9 Oral phase dysphagia R13.11 Dysphagia type: oral phase Assessment & Plan Assessment & Plan (1) Obesity due to excess calories: Code(s): E66.09 - Other obesity due to excess calories Category: Medical Qualifiers: Obesity classification: adult class 1 (BMI 30 - 34.9) Serious obesity comorbidity presence: without serious comorbidity Body mass index: BMI 33.0- 33.9 Qualified Code(s): E66.811 - Obesity, class 1; E66.09 - Other obesity due to excess calories; Z68.33 - Body mass index [BMI] 33.0-33.9, adult (2) Vitamin D deficiency: Code(s): E55.9 - Vitamin D deficiency, unspecified Category: Medical (3) Difficulty swallowing: Code(s): R13.10 - Dysphagia, unspecified Category: Medical Qualifiers: Dysphagia type: oral phase Qualified Code(s): R13.11 - Dysphagia, oral phase Plan History - The patient is a 44-year-old female presenting with concerns related to weight control while on phentermine therapy. Despite adherence to medication protocols, the patient has experienced no significant weight changes or appetite suppression. - Current medication adherence was modified to noon-isis due to meal timing; yet, effectiveness remains unsubstantial. - Routine laboratory work reveals a persistently low white blood cell count and persistent yet non-progressive elevation in liver enzymes, matching past results from 2021. - Vitamin D deficiency is an ongoing issue, with supplementation expected. - The patient has been monitoring her health actively, displaying concern over slight variations in laboratory outcomes and previous vitamin D deficiency. Problem List - Obesity - Low white blood cell count (Leukopenia) - Elevated liver enzymes - Vitamin D deficiency Patient Instructions - Increase the dose of phentermine to 37.5 mg as advised. - Continue taking omeprazole as prescribed. - Begin taking vitamin D supplements once prescription is received. - Schedule a follow-up appointment in about four weeks for reassessment. - Monitor any changes in appetite or side effects from the medication adjustment. - Book the next appointment prior to the provider's leave, preferably on November 15 or . Medications: New cholecalciferol (vitamin D3) 25 mcg PO DAILY 90 days 90 caps 0RF Changed From phentermine must administer 2 hours after breakfast 15 mg PO DAILY 30 caps 0RF To phentermine must administer 2 hours after breakfast 37.5 mg PO DAILY 30 caps 0RF
== END 2024-10-20 13:53 | disposition home or self-care (01) ==
PROVIDERS: PCP Internal Medicine; Visit Provider Internal Medicine
DX: E66.811 Obesity, class 1 (principal); E66.09 Other obesity due to excess calories; Z68.33 Body mass index [BMI] 33.0-33.9, adult; E55.9 Vitamin D deficiency, unspecified; R13.11 Dysphagia, oral phase

== ENCOUNTER → 2024-10-20 13:19 | Outpatient (BNVA) | payer OTHER, SELFPAY | PROVIDERS: PCP Internal Medicine; Visit Provider Internal Medicine | DX: Z00.01 Encounter for general adult medical examination with abnormal findings (principal); E55.9 Vitamin D deficiency, unspecified; E66.811 Obesity, class 1; E66.09 Other obesity due to excess calories; R13.11 Dysphagia, oral phase; Z68.33 Body mass index [BMI] 33.0-33.9, adult | CPT/HCPCS: 99212 ==

== ENCOUNTER 2024-11-24 12:27 | Outpatient (AMB) | payer OTHER, SELFPAY ==
--- NOTE | 2024-11-24 12:27 | A.OFFPC_ITS ---
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 - The patient reported bruising and dry skin patches, prompting concern about potential lupus, as her mother has been diagnosed with lupus and an aunt from lupus complications. - There were no previous tests for lupus conducted for the patient until now. - The patient is currently taking phente rmine 37.5 mg. for wt lose and was able to lose only one lb - She reports exercising regularly, incl uding walking half a mile to work and more around lunchtime. - She is currently taking Vitamin D supp lements and acknowledges the importance of continuing with them. Problem List - Obesity - Dry skin patches - Possible Autoimmune Disorder Patient Instructions - start Topamax and continue phentermin - Engage in regular physical activity, s uch as walking to work and during lunch breaks. - Get the ordered lab tests done as soon as possible. Fasting is not required. - Return for follow-up in one month. Review of Systems - General: No fever no chills - Neurological: No headaches no dizziness - Ear nose throat: No sore throat no hearing difficulty no ear pain - Cardiovascular: No syncope, no chest pain, no palpitations - Gastrointestinal: No nausea vomiting or diarrhea - Endocrine: No polyuria polydipsia no heat intolerance - Genitourinary: No dysuria , no blood in urine Physical Exam General: No acute distress HEENT: No acute findings Neck: Supple Respiratory system: Able to talk in full sentences, no audible wheeze Cardiovascular: S1-S2 regular in rate and rhythm, no palpitations Gastrointestinal: No pain, no chest pains Extremities: No new findings PONDMAN: Alert awake oriented x3 motor sensory intact Skin: Normal turgor, some dry patches [facility] Medical History Contact with and (suspected) exposure to other viral communicable diseases No known health problems Surgical History No pertinent past surgical history Social History Housing: House Alcohol intake: never Patient Tobacco Use Status: Former Tobacco user e-Cigarette/Vaping Use: Never Used service: No Current occupational status: employed Cognitive needs: No Hearing needs: No Vision needs: No Questionnaire PHQ-9 Over the last 2 weeks, how often have you been bothered by any of the following problems? 14489 - PHQ-9 Billing: Patient declined-do not bill Source: Developed by Drs. Mega Agarwal, Jayashree Kimball, Luisito Beach and colleagues, with an educational nestor from [employer]. Thrive Questionnaire Date Thrive assessed: 11/24/24 I am a: Patient What is your living situation today?: I have a steady place to live Within the past 12 months, did the food you bought not last and you didn't have the money to get more?: Never true Within the past 12 months, did you worry whether your food would run out before you got money to buy more?: Never true Do you have trouble paying for medicines?: No Do you have trouble getting transportation to medical appointments?: No Do you have trouble paying your heating and electricity bill?: No Do you have trouble taking care of your child, family member or friend?: No Do you have trouble with day-to-day activities such as bathing, preparing meals, shopping, managing finances, etc.?: No Are you currently unemployed and looking for a job?: No Are you interested in more education?: No Please select the resources that you would like help with: None Currently or been in a relationship where the following occur: No concerns reported THRIVE Score: 0 AUDIT C Alcohol Use Questionnaire (AUDIT-C) 1. How often do you have a drink containing alcohol?: Monthly or less 2. How many drinks containing alcohol do you have on a typical day when you are drinking?: 1 or 2 3. How often do you have six or more drinks on one occasion?: Never Total Score: 1 Score Reviewed/Action Taken: Yes CORINE-7 AMB Questionnaire CORINE-7 Date CORINE - 7 assessed: 08/23/24 Source: Developed by Drs. Mega Agarwal, Jayashree Kimball, Luisito Beach and colleagues, with an educational nestor from [employer]. Physical exam (Primary Care) Vital Signs: Last Vital Signs Pulse 80 11/24/24 12:28 BP 144/80 H 11/24/24 12:28 Pulse Ox 99 11/24/24 12:28 Oxygen Delivery Method Room Air 11/24/24 12:28 BMI result Body Mass Index 32.3 Tobacco/Smoking Status: Tobacco use Status Tobacco use date assessed 11/24/24 11/24/24 12:31 Patient Tobacco Use Status Former Tobacco user 11/24/24 12:28 e-Cigarette/Vaping Use Never Used 11/24/24 12:28 Thrive Assessment: Date of Thrive Assessment Date Thrive assessed 08/20/24 11/24/24 12:33 Currently or been in a relationship where the following occur: No concerns reported Coding Level of Care Code Est Pt Level 3 (22016) Diagnoses Family history of cutaneous lupus Z84.0 Class 1 obesity due to excess calories without serious comorbidity with body mass index (BMI) of 33.0 to 33.9 in adult E66.811; E66.09; Z68.33 Obesity classification: adult class 1 (BMI 30 - 34.9) Serious obesity comorbidity presence: without serious comorbidity Body mass index: BMI 33.0-33.9 Vitamin D deficiency E55.9 Assessment & Plan Assessment & Plan (1) Family history of cutaneous lupus: Code(s): Z84.0 - Family history of diseases of the skin and subcutaneous tissue Category: Medical (2) Obesity due to excess calories: Code(s): E66.09 - Other obesity due to excess calories Category: Medical Qualifiers: Obesity classification: adult class 1 (BMI 30 - 34.9) Serious obesity comorbidity presence: without serious comorbidity Body mass index: BMI 33.0- 33.9 Qualified Code(s): E66.811 - Obesity, class 1; E66.09 - Other obesity due to excess calories; Z68.33 - Body mass index [BMI] 33.0-33.9, adult (3) Vitamin D deficiency: Code(s): E55.9 - Vitamin D deficiency, unspecified Category: Medical Plan History - The patient is a 44-year-old female presenting with concerns about bruising and a family history of lupus. - The patient reported bruising and dry skin patches, prompting concern about potential lupus, as her mother has been diagnosed with lupus and an aunt from lupus complications. - There were no previous tests for lupus conducted for the patient until now. - The patient is currently taking phentermine 37.5 mg. for wt lose and was able to lose only one lb - She reports exercising regularly, including walking half a mile to work and more around lunchtime. - She is currently taking Vitamin D supplements and acknowledges the importance of continuing with them. Problem List - Obesity - Dry skin patches - Possible Autoimmune Disorder Patient Instructions - start Topamax and continue phentermin - Engage in regular physical activity, such as walking to work and during lunch breaks. - Get the ordered lab tests done as soon as possible. Fasting is not required. - Return for follow-up in one month. Orders: Orders MALVIN Reflex Titer and Pattern Today Z84.0 - Family history of diseases of the skin and subcutaneous tissue Lupus Anticoagulant Panel Today Z84.0 - Family history of diseases of the skin and subcutaneous tissue Sm Sm/COMMERCIAL REAL ESTATE UNDERWRITER Antibodies Today Z84.0 - Family history of diseases of the skin and subcutaneous tissue C Reactive Protein Today Z84.0 - Family history of diseases of the skin and subcutaneous tissue Anti DNA DS Antibody Today Z84.0 - Family history of diseases of the skin and subcutaneous tissue Complement C3 Today Z84.0 - Family history of diseases of the skin and subcutaneous tissue DNA Double Stranded-Crithidia Today Z84.0 - Family history of diseases of the skin and subcutaneous tissue Sjogren's Antibodies Today Z84.0 - Family history of diseases of the skin and subcutaneous tissue Protein Creatinine Ratio, Ur Today Z84.0 - Family history of diseases of the skin and subcutaneous tissue Complement C4 Today Z84.0 - Family history of diseases of the skin and subcutaneous tissue Erythrocyte Sedimentation Rate Today Z84.0 - Family history of diseases of the skin and subcutaneous tissue UA w Microscopic Today Z84.0 - Family history of diseases of the skin and subcutaneous tissue Medications: New topiramate (Topamax) 25 mg PO DAILY 30 tabs 0RF Refilled phentermine must administer 2 hours after breakfast 37.5 mg PO DAILY 30 caps 0RF
[2024-11-24 12:28] VITALS: BP 144/80; PULSE 80; O2SAT 99; BMI 32.3
== END 2024-11-24 12:42 | disposition home or self-care (01) ==
PROVIDERS: PCP Internal Medicine; Visit Provider Internal Medicine
DX: Z84.0 Family history of diseases of the skin and subcutaneous tissue (principal); E66.811 Obesity, class 1; E66.09 Other obesity due to excess calories; Z68.33 Body mass index [BMI] 33.0-33.9, adult; E55.9 Vitamin D deficiency, unspecified

== ENCOUNTER → 2024-11-24 12:27 | Outpatient (BNVA) | payer OTHER, SELFPAY | PROVIDERS: PCP Internal Medicine; Visit Provider Internal Medicine | DX: E55.9 Vitamin D deficiency, unspecified (principal); E66.811 Obesity, class 1; E66.09 Other obesity due to excess calories; Z68.33 Body mass index [BMI] 33.0-33.9, adult; Z84.0 Family history of diseases of the skin and subcutaneous tissue | CPT/HCPCS: 99212 ==

== ENCOUNTER 2024-12-07 16:16 | Outpatient (REF) | payer OTHER, SELFPAY | END 2024-12-07 16:17 | disposition home or self-care (01) | LOC: HO.LAB 16:16 | PROVIDERS: PCP Internal Medicine; Visit Provider Internal Medicine | DX: Z13.89 Encounter for screening for other disorder (principal) ==

== ENCOUNTER 2024-12-08 09:24 | Outpatient (REF) | payer OTHER, SELFPAY ==
[2024-12-08 11:08] LABS: C Reactive Protein < 0.10 mg/dL (< or = 0.50)
[2024-12-08 11:35] LABS: Erythrocyte Sedimentation Rate 12 MM/HR (0-20)
[2024-12-08 11:58] LABS: Appearance Urine Clear; Color Urine Yellow; Glucose Urine UA Negative (Negative); Leukocyte Esterase Urine Negative (Negative); Nitrite Urine Negative (Negative); Specific Gravity - Urine <= 1.005 (1.005-1.025); Urine Blood Negative (Negative); Urine Ketones Negative (Negative); Urine Protein Negative (Neg-Trace)
[2024-12-08 12:05] LABS: Bacteria Urine None Seen (None Seen); Hyaline Casts Urine 0-2 /LPF (0-2); RBC Urine 0-2 /HPF (0-2); Squamous Epithelial Cell Urine 0-2 /HPF (0-2); WBC Urine 0-5 /HPF (0-5)
[2024-12-08 12:34] LABS: Creatinine Urine 34.41 mg/dL; Total Protein Urine Random < 7 mg/dL (<12)
[2024-12-11 17:29] LABS: Anti DNA DS Antibody <1 IU/mL; Antibody to SS-A Antigen <1.0 NEG AI (<1.0 NEG); Antibody to SS-B Antigen <1.0 NEG AI (<1.0 NEG); SM/Ribonucleoprotein Ab <1.0 NEG AI (<1.0 NEG); Smith Protein <1.0 NEG AI (<1.0 NEG)
[2024-12-12 11:33] LABS: Complement C3 160 mg/dL (83-193)
[2024-12-13 11:28] LABS: Anti Nuclear Antibody Screen NEGATIVE (NEGATIVE)
[2024-12-14 00:04] LABS: Hexagonal Phase Neutralization Negative (Negative); PTT (LAC) Screen 41 sec (<=40)
[2024-12-14 09:09] LABS: DNAds, Crithidia Antibody Negative (Negative)
== END 2024-12-08 09:25 | disposition home or self-care (01) ==
LOC: HO.LAB 09:24
PROVIDERS: PCP Internal Medicine; Visit Provider Internal Medicine
DX: Z00.01 Encounter for general adult medical examination with abnormal findings (principal); E66.811 Obesity, class 1; E66.09 Other obesity due to excess calories; Z68.33 Body mass index [BMI] 33.0-33.9, adult; E55.9 Vitamin D deficiency, unspecified; R13.11 Dysphagia, oral phase; K22.0 Achalasia of cardia; Z84.0 Family history of diseases of the skin and subcutaneous tissue
CPT/HCPCS: 36415; 81001; 81003; 82570; 84156; 85597; 85598; 85613; 85652; 85730; 86038; 86140; 86160; 86225; 86235; 86255

== ENCOUNTER 2024-12-22 07:57 | Outpatient (AMB) | payer OTHER, SELFPAY ==
--- NOTE | 2024-12-22 08:13 | MHC.PC.OV ---
Intake Visit Reasons: 4 weeks f/up Allergies No Known Allergies Allergy (Verified 11/24/24 12:28) Medication List - Last Reconciled 12/22/24 by Rosibel Gore MD cholecalciferol (vitamin D3) 25 mcg PO DAILY 90 days omeprazole 20 mg PO DAILY 90 days phentermine 37.5 mg PO DAILY topiramate (Topamax) 25 mg PO DAILY Tobacco use date assessed: 11/24/24 Dental Screening Dental Screen Date: 10/20/24 HPI 4 weeks f/up HPI Details History - The patient is a 44-year-old female presenting with a concern about lupus and follow-up on weight loss. - Weight loss has been actively monitored; her weight was 219 pounds at the previous visit on August 27 and is now 216.4 pounds, demonstrating a downward trend. - The patient is currently taking Phentermine and Topamax for weight management, with no reported side effects such as chest pain or palpitations. - Previous concerns about lupus were addressed through extensive laboratory tests, including an MALVIN screening, which returned negative for lupus and inflammation markers. - The patient has been experiencing low Vitamin D levels, although her energy levels have improved since starting supplementation. Problem List - Weight loss - Low Vitamin D levels Patient Instructions - Continue taking Phentermine and Topamax as prescribed. - Continue Vitamin D supplementation as previously directed. - Expect to receive a refill for your prescriptions. - Contact the office if new symptoms appear or existing symptoms worsen. Review of Systems - General: No fever no chills - Neurological: No headaches no dizziness - Ear nose throat: No sore throat no hearing difficulty no ear pain - Cardiovascular: No syncope, no chest pain, no palpitations - Gastrointestinal: No nausea vomiting or diarrhea - Endocrine: No polyuria polydipsia no heat intolerance - Genitourinary: No dysuria , no blood in urine [facility] Medical History Contact with and (suspected) exposure to other viral communicable diseases No known health problems Surgical History No pertinent past surgical history Social History Housing: House Alcohol intake: never Patient Tobacco Use Status: Former Tobacco user e-Cigarette/Vaping Use: Never Used service: No Current occupational status: employed Cognitive needs: No Hearing needs: No Vision needs: No Questionnaire Thrive Questionnaire Date Thrive assessed: 08/20/24 CORINE-7 AMB Questionnaire CORINE-7 Date CORINE - 7 assessed: 08/23/24 Source: Developed by Drs. Mega Agarwal, Jayashree Kimball, Luisito Beach and colleagues, with an educational nestor from [employer]. Physical exam (Primary Care) Tobacco/Smoking Status: Tobacco use Status Tobacco use date assessed 11/24/24 12/22/24 08:13 Patient Tobacco Use Status Former Tobacco user 12/22/24 08:13 e-Cigarette/Vaping Use Never Used 12/22/24 08:13 Thrive Assessment: Date of Thrive Assessment Date Thrive assessed 08/20/24 12/22/24 08:13 Telehealth Telehealth [facility] Location of provider rendering services: practice address Location of patient: address on file Patient Identification confirmed using: Name, : Yes Telehealth method: video Patient verbally consented to treatment: Yes Patient verbally consented to billing insurance company: Yes Patient informed of any privacy concerns related to visit: Yes Minutes spent on Phone/Video with Pt.: 13 Coding Level of Care Code Tele Est Pt Level 3 (50139) Diagnoses Class 1 obesity due to excess calories without serious comorbidity with body mass index (BMI) of 33.0 to 33.9 in adult E66.811; E66.09; Z68.33 Obesity classification: adult class 1 (BMI 30 - 34.9) Serious obesity comorbidity presence: without serious comorbidity Body mass index: BMI 33.0-33.9 Vitamin D deficiency E55.9 Assessment & Plan Assessment & Plan (1) Obesity due to excess calories: Code(s): E66.09 - Other obesity due to excess calories Category: Medical Qualifiers: Obesity classification: adult class 1 (BMI 30 - 34.9) Serious obesity comorbidity presence: without serious comorbidity Body mass index: BMI 33.0-33.9 Qualified Code(s): E66.811 - Obesity, class 1; E66.09 - Other obesity due to excess calories; Z68.33 - Body mass index [BMI] 33.0-33.9, adult (2) Vitamin D deficiency: Code(s): E55.9 - Vitamin D deficiency, unspecified Category: Medical Plan History - The patient is a 44-year-old female presenting with a concern about lupus and follow-up on weight loss. - Weight loss has been actively monitored; her weight was 219 pounds at the previous visit on August 27 and is now 216.4 pounds, demonstrating a downward trend. - The patient is currently taking Phentermine and Topamax for weight management, with no reported side effects such as chest pain or palpitations. - Previous concerns about lupus were addressed through extensive laboratory tests, including an MALVIN screening, which returned negative for lupus and inflammation markers. - The patient has been experiencing low Vitamin D levels, although her energy levels have improved since starting supplementation. Problem List - Weight loss - Low Vitamin D levels Patient Instructions - Continue taking Phentermine and Topamax as prescribed. - Continue Vitamin D supplementation as previously directed. - Expect to receive a refill for your prescriptions. - Contact the office if new symptoms appear or existing symptoms worsen. Medications: Refilled topiramate (Topamax) 25 mg PO DAILY 30 tabs 0RF phentermine must administer 2 hours after breakfast 37.5 mg PO DAILY 30 caps 0RF
== END 2024-12-22 09:14 | disposition home or self-care (01) ==
LOC: HO.HMCC 07:57
PROVIDERS: PCP Internal Medicine; Visit Provider Internal Medicine
DX: E55.9 Vitamin D deficiency, unspecified (principal); E66.811 Obesity, class 1; Z68.33 Body mass index [BMI] 33.0-33.9, adult

== ENCOUNTER → 2024-12-22 07:57 | Outpatient (BNVA) | payer OTHER, SELFPAY | PROVIDERS: PCP Internal Medicine; Visit Provider Internal Medicine | DX: Z13.89 Encounter for screening for other disorder (principal) ==

== ENCOUNTER 2025-01-01 09:07 | Outpatient (REF) | payer OTHER, SELFPAY ==
--- NOTE | ~2025-01-01 | FL_ITS ---
EXAMINATION: XR BARIUM SWALLOW CLINICAL INFORMATION: Dysphagia COMPARISON: None available. TECHNIQUE: Routine barium swallow upright was performed with thick barium and barium coated saltine crackers coated with barium paste. Thin barium was administered in prone lying position. FINDINGS: Following oral administration of thick barium there is normal propagation bolus from the oral cavity through the pharynx, esophagus into stomach without obstruction, narrowing or stricture. No laryngeal penetration or aspiration seen. On oral administration of saltine crackers and thin barium there is normal oral mastication with normal propagation bolus from the oral cavity through the pharynx, esophagus into stomach. On placing patient prone lying and oral administration of thin barium there is good distention of the entire esophagus without any evidence of intrinsic filling defect or extrinsic compression. No evidence of hiatal hernia or reflux. FLUOROSCOPY TIME: 1 minute 48 seconds DOSE AREA PRODUCT: 33.23 uGy-m2 (microgray-meter squared) FL/FL barium swallow IMPRESSION: Unremarkable barium swallow exam in upright and lying position. Electronically signed by: Prashant Ricardo MD 01/01/2025 10:16 AM EDT
== END 2025-01-01 09:08 | disposition home or self-care (01) ==
LOC: HO.XRAY 09:07
PROVIDERS: PCP Internal Medicine; Visit Provider Internal Medicine
DX: R13.11 Dysphagia, oral phase (principal)
CPT/HCPCS: 74220

== ENCOUNTER → 2025-01-01 09:09 | Outpatient (BNV) | payer OTHER, SELFPAY | PROVIDERS: PCP Internal Medicine; Visit Provider Radiology Diagnostic Radiology | DX: R13.10 Dysphagia, unspecified (principal) | CPT/HCPCS: 74220 ==

== ENCOUNTER 2025-01-19 13:25 | Outpatient (AMB) | payer OTHER, SELFPAY ==
[2025-01-19 13:27] VITALS: BP 130/90; PULSE 81; TEMP 36.2; O2SAT 98; BMI 31.6
--- NOTE | 2025-01-19 13:27 | MHC.PC.OV ---
Vital Signs 01/19/25 13:27 Height 5 ft 9 in Weight 214 lb BMI 31.6 BP 130/90 H Blood Pressure Location Rt brachial Position Sitting Pulse 81 Pulse Source Pulse Oximeter Temp 97.2 F Temp Source Temporal Artery Scan Pulse Oximetry (%) 98 Oxygen Delivery Method Room Air Intake Visit Reasons: 28 Day f/up Allergies No Known Allergies Allergy (Verified 01/19/25 13:27) Medication List - Last Reconciled 01/19/25 by Rosibel Gore MD cholecalciferol (vitamin D3) 25 mcg PO DAILY 90 days omeprazole 20 mg PO DAILY 90 days phentermine 37.5 mg PO DAILY topiramate (Topamax) 25 mg PO DAILY Tobacco use date assessed: 01/19/25 Dental Screening Dental Screen Date: 01/19/25 Did you have a dental visit in the last 12 months?: No Did you have a dental problem in the last 6 months where you did not have access to dental care?: No Was dental information given to patient?: Patient declined HPI 28 Day f/up HPI Details History - The patient is a 44-year-old female presenting with weight management concerns. - History of Problem: The patient has been monitoring her weight, with a noted decrease from 219 pounds on November 24 to 214 pounds by January 02. - Medication Management: The patient is currently taking phentermine 37.5 mg and Topamax 25 mg for weight management. - Medication Effects: The patient reports no side effects such as drowsiness or palpitations from the medications. - Exercise: The patient confirms engaging in regular exercise. Problem List - Weight management - Medication management Patient Instructions - Continue current medications as prescribed. - Maintain regular exercise routine. - Schedule a follow-up appointment in four weeks. Review of Systems - General: No fever no chills - Neurological: No headaches no dizziness - Ear nose throat: No sore throat no hearing difficulty no ear pain - Cardiovascular: No syncope, no chest pain, no palpitations - Gastrointestinal: No nausea vomiting or diarrhea - Endocrine: No polyuria polydipsia no heat intolerance - Genitourinary: No dysuria , no blood in urine Physical Exam General: No acute distress HEENT: No acute findings Neck: Supple Respiratory system: Able to talk in full sentences, no audible wheeze Cardiovascular: S1-S2 regular in rate and rhythm, no palpitations Gastrointestinal: No pain Extremities: No new 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 1. Little interest or pleasure in doing things: not at all 2. Feeling down, depressed, or hopeless: not at all 3. Trouble falling or staying asleep, or sleeping too much: not at all 4. Feeling tired or having little energy: not at all 5. Poor appetite or overeating: not at all 6. Feeling bad about yourself - or that you are a failure or have let yourself or your family down: not at all 7. Trouble concentrating on things, such as reading the newspaper or watching television: not at all 8. Moving or speaking so slowly that other people could have noticed. Or the opposite - being so fidgety or restless that you have been moving around a lot more than usual: not at all 9. Thoughts that you would be better off or of hurting yourself in some way: not at all Total score: 0 Depression Screening Interpretation: Negative Depression Screening Done: Yes Source: Developed by Drs. Mega Agarwal, Jayashree Kimball, Luisito Beach and colleagues, with an educational nestor from [employer]. Thrive Questionnaire Date Thrive assessed: 08/20/24 I am a: Patient What is your living situation today?: I have a steady place to live Within the past 12 months, did the food you bought not last and you didn't have the money to get more?: Never true Within the past 12 months, did you worry whether your food would run out before you got money to buy more?: Never true Do you have trouble paying for medicines?: No Do you have trouble getting transportation to medical appointments?: No Do you have trouble paying your heating and electricity bill?: No Do you have trouble taking care of your child, family member or friend?: No Do you have trouble with day-to-day activities such as bathing, preparing meals, shopping, managing finances, etc.?: No Are you currently unemployed and looking for a job?: No Are you interested in more education?: No Please select the resources that you would like help with: None Currently or been in a relationship where the following occur: No concerns reported THRIVE Score: 0 AUDIT C Alcohol Use Questionnaire (AUDIT-C) 1. How often do you have a drink containing alcohol?: Monthly or less 2. How many drinks containing alcohol do you have on a typical day when you are drinking?: 1 or 2 3. How often do you have six or more drinks on one occasion?: Never Total Score: 1 Score Reviewed/Action Taken: Yes CORINE-7 AMB Questionnaire CORINE-7 Date CORINE - 7 assessed: 08/23/24 Feeling nervous, anxious, or on edge: 0 = Not at all Not being able to stop or control worryin = Not at all Worrying too much about different things: 0 = Not at all Trouble relaxin = Not at all Being so restless that it is hard to sit still: 0 = Not at all Becoming easily annoyed or irritable: 0 = Not at all Feeling afraid as if something awful might happen: 0 = Not at all Total CORINE-7 score (0-4 normal; 5-9 mild; 10-14 moderate; 15-21 severe): 0 Source: Developed by Drs. Mega Agarwal, Jayashree Kimball, Luisito Beach and colleagues, with an educational nestor from [employer]. Physical exam (Primary Care) Vital Signs: Last Vital Signs Temp 97.2 F 01/19/25 13:27 Pulse 81 01/19/25 13:27 BP 130/90 H 01/19/25 13:27 Pulse Ox 98 01/19/25 13:27 Oxygen Delivery Method Room Air 01/19/25 13:27 BMI result Body Mass Index 31.6 Tobacco/Smoking Status: Tobacco use Status Tobacco use date assessed 01/19/25 01/19/25 13:29 Patient Tobacco Use Status Former Tobacco user 01/19/25 13:29 e-Cigarette/Vaping Use Never Used 01/19/25 13:29 PHQ-9: PHQ-9 Score PHQ-9: Total score 0 01/19/25 13:35 Depression Screening Interpretation: Negative Thrive Assessment: Date of Thrive Assessment Date Thrive assessed 08/20/24 01/19/25 13:29 Currently or been in a relationship where the following occur: No concerns reported Coding Level of Care Code Est Pt Level 3 (99721) Diagnoses Class 1 obesity due to excess calories without serious comorbidity with body mass index (BMI) of 33.0 to 33.9 in adult E66.811; E66.09; Z68.33 Obesity classification: adult class 1 (BMI 30 - 34.9) Serious obesity comorbidity presence: without serious comorbidity Body mass index: BMI 33.0-33.9 Assessment & Plan Assessment & Plan (1) Obesity due to excess calories: Code(s): E66.09 - Other obesity due to excess calories Category: Medical Qualifiers: Obesity classification: adult class 1 (BMI 30 - 34.9) Serious obesity comorbidity presence: without serious comorbidity Body mass index: BMI 33.0-33.9 Qualified Code(s): E66.811 - Obesity, class 1; E66.09 - Other obesity due to excess calories; Z68.33 - Body mass index [BMI] 33.0-33.9, adult Plan History - The patient is a 44-year-old female presenting with weight management concerns. - History of Problem: The patient has been monitoring her weight, with a noted decrease from 219 pounds on November 24 to 214 pounds by January 02. - Medication Management: The patient is currently taking phentermine 37.5 mg and Topamax 25 mg for weight management. - Medication Effects: The patient reports no side effects such as drowsiness or palpitations from the medications. - Exercise: The patient confirms engaging in regular exercise. Problem List - Weight management - Medication management Patient Instructions - Continue current medications as prescribed. - Maintain regular exercise routine. - Schedule a follow-up appointment in four weeks. Medications: Refilled phentermine must administer 2 hours after breakfast 37.5 mg PO DAILY 30 caps 0RF topiramate (Topamax) 25 mg PO DAILY 30 tabs 0RF
== END 2025-01-19 13:48 | disposition home or self-care (01) ==
LOC: HO.HMCC 13:26
PROVIDERS: PCP Internal Medicine; Visit Provider Internal Medicine
DX: E66.811 Obesity, class 1 (principal); E66.09 Other obesity due to excess calories; Z68.33 Body mass index [BMI] 33.0-33.9, adult

== ENCOUNTER → 2025-01-19 13:25 | Outpatient (BNVA) | payer OTHER, SELFPAY | PROVIDERS: PCP Internal Medicine; Visit Provider Internal Medicine | DX: E66.811 Obesity, class 1 (principal); E66.09 Other obesity due to excess calories; Z68.33 Body mass index [BMI] 33.0-33.9, adult | CPT/HCPCS: 99212 ==

== ENCOUNTER → 2025-02-01 08:15 | Outpatient (BNV) | payer OTHER, SELFPAY | PROVIDERS: PCP Internal Medicine; Visit Provider Radiology Body Imaging | DX: Z12.31 Encounter for screening mammogram for malignant neoplasm of breast (principal) | CPT/HCPCS: 77063; 77067 ==

== ENCOUNTER 2025-02-01 08:16 | Outpatient (REF) | payer OTHER, SELFPAY ==
--- NOTE | ~2025-02-01 | MM_ITS ---
EXAMINATION: MM SCREENING DIGITAL BREAST TOMOSYNTHESIS, BILATERAL CLINICAL INFORMATION: Screening. Asymptomatic. COMPARISON: Comparison made to multiple prior, most recent January 24, 2024, and most remote December 30, 2021. TECHNIQUE: Digital breast tomosynthesis is performed in both the craniocaudal and mediolateral oblique views along with computer-aided detection (CAD). Synthesized 2D images are generated from the tomosynthesis. FINDINGS: BREAST COMPOSITION: There are scattered areas of fibroglandular density (ACR BI-RADS breast composition Category b). BILATERAL BREASTS: No significant masses, suspicious calcifications or other abnormalities are seen in either breast. MM/MM tomosynthesis screening BI IMPRESSION: BILATERAL BREASTS: Negative, no mammographic evidence of malignancy. Normal interval follow-up is recommended in 12 months. ASSESSMENT: BI-RADS 1 - Negative RECOMMENDATION: Routine annual mammography screening. FOLLOW-UP: 1 year F/U This examination should not preclude the clinical evaluation of a suspicious palpable abnormality. This patient's information was entered into a reminder system with a target due date for their next mammogram. Electronically signed by: Wesley Tsang MD 02/13/2025 08:40 PM EDT
== END 2025-02-01 08:17 | disposition home or self-care (01) ==
LOC: HO.MAMMO 08:16
PROVIDERS: PCP Internal Medicine; Visit Provider Internal Medicine
DX: Z12.31 Encounter for screening mammogram for malignant neoplasm of breast (principal)
CPT/HCPCS: 77063; 77067

== ENCOUNTER 2025-03-07 11:50 | Outpatient (AMB) | payer OTHER, SELFPAY ==
[2025-03-07 11:53] VITALS: BP 130/80; PULSE 88; O2SAT 98; BMI 31.3
--- NOTE | 2025-03-07 11:53 | A.OFFPC_ITS ---
Vital Signs 03/07/25 11:53 Height 5 ft 9 in Weight 212 lb BMI 31.3 BP 130/80 Blood Pressure Location Lt brachial Position Sitting Pulse 88 Pulse Source Pulse Oximeter Pulse Oximetry (%) 98 Intake Visit Reasons: 28 Day f/up Allergies No Known Allergies Allergy (Verified 03/07/25 11:53) Medication List - Last Reconciled 03/07/25 by Rosibel Gore MD cholecalciferol (vitamin D3) 25 mcg PO DAILY 90 days omeprazole 20 mg PO DAILY 90 days phentermine 37.5 mg PO DAILY topiramate (Topamax) 25 mg PO DAILY Tobacco use date assessed: 01/19/25 Dental Screening Dental Screen Date: 01/19/25 HPI 28 Day f/up HPI Details Chief Complaint The patient is following up for weight loss management and discussion regarding lifestyle changes. History of Present Illness The patient is a 44-year-old female presenting with weight management. Weight Management: - The patient reports having lost two mo re pounds since the last visit. - She has a goal to reduce her weight fu rther by 60 pounds. - Current BMI is 31.3, indicating obesit y. - The target weight is 190 pounds; she i s currently 22 pounds away from this goal. - The patient is engaged in exercise, sp ecifically walking, and is monitoring her diet. - Reports no issues with medication impa cting weight management. Social History: - Exercising regularly, primarily walkin g. - Currently dieting and actively engaged in weight management efforts. - Under some stress due to her father's hospitalization. Family History: - Father is currently hospitalized and d ue for gallbladder surgery. His white blood cell count is elevated at 17. - Father is turning 70 years old. Problem List - Obesity - Weight management follow-up Patient Instructions - Continue walking as a form of exercise . - Maintain current dietary habits to ass ist with weight loss. - Return for a follow-up visit in one mo [facility]. Review of Systems - General: No fever no chills - Neurological: No headaches no dizziness - Ear nose throat: No sore throat no hearing difficulty no ear pain - Cardiovascular: No syncope, no chest pain, no palpitations - Gastrointestinal: No nausea vomiting or diarrhea - Endocrine: No polyuria polydipsia no heat intolerance - Genitourinary: No dysuria , no blood in urine Physical Exam General: No acute distress HEENT: No acute findings Neck: Supple Respiratory system: Able to talk in full sentences, no audible wheeze Cardiovascular: S1-S2 regular in rate and rhythm, no palpitations, no chest pains Gastrointestinal: No pain Extremities: No new findings 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 Skin: Normal turgor [facility] Medical History Contact with and (suspected) exposure to other viral communicable diseases No known health problems Surgical History No pertinent past surgical history Social History Housing: House Alcohol intake: never Patient Tobacco Use Status: Former Tobacco user e-Cigarette/Vaping Use: Never Used service: No Current occupational status: employed Cognitive needs: No Hearing needs: No Vision needs: No Questionnaire Thrive Questionnaire Date Thrive assessed: 08/20/24 I am a: Patient What is your living situation today?: I have a steady place to live Within the past 12 months, did the food you bought not last and you didn't have the money to get more?: Never true Within the past 12 months, did you worry whether your food would run out before you got money to buy more?: Never true Do you have trouble paying for medicines?: No Do you have trouble getting transportation to medical appointments?: No Do you have trouble paying your heating and electricity bill?: No Do you have trouble taking care of your child, family member or friend?: No Do you have trouble with day-to-day activities such as bathing, preparing meals, shopping, managing finances, etc.?: No Are you currently unemployed and looking for a job?: No Are you interested in more education?: No Please select the resources that you would like help with: None Currently or been in a relationship where the following occur: No concerns reported THRIVE Score: 0 CORINE-7 AMB Questionnaire CORINE-7 Date CORINE - 7 assessed: 08/23/24 Source: Developed by Drs. Mega Agarwal, Jayashree Kimball, Luisito Beach and colleagues, with an educational nestor from [employer]. Physical exam (Primary Care) Vital Signs: Last Vital Signs Pulse 88 03/07/25 11:53 BP 130/80 03/07/25 11:53 Pulse Ox 98 03/07/25 11:53 BMI result Body Mass Index 31.3 Tobacco/Smoking Status: Tobacco use Status Tobacco use date assessed 01/19/25 03/07/25 11:56 Patient Tobacco Use Status Former Tobacco user 03/07/25 11:56 e-Cigarette/Vaping Use Never Used 03/07/25 11:56 Thrive Assessment: Date of Thrive Assessment Date Thrive assessed 08/20/24 03/07/25 11:56 Currently or been in a relationship where the following occur: No concerns reported Coding Level of Care Code Est Pt Level 3 (23340) Complex EM visit Add On G2211 Diagnoses Class 1 obesity due to excess calories without serious comorbidity with body mass index (BMI) of 33.0 to 33.9 in adult E66.811; E66.09; Z68.33 Obesity classification: adult class 1 (BMI 30 - 34.9) Serious obesity comorbidity presence: without serious comorbidity Body mass index: BMI 33.0-33.9 Assessment & Plan Assessment & Plan (1) Obesity due to excess calories: Code(s): E66.09 - Other obesity due to excess calories Category: Medical Qualifiers: Obesity classification: adult class 1 (BMI 30 - 34.9) Serious obesity c omorbidity presence: without serious comorbidity Body mass index: BMI 33.0-33.9 Qualified Code(s): E66.811 - Obesity, class 1; E66.09 - Other obesity due to excess calories; Z68.33 - Body mass index [BMI] 33.0-33.9, adult Plan Chief Complaint The patient is following up for weight loss management and discussion regarding lifestyle changes. History of Present Illness The patient is a 44-year-old female presenting with weight management. Weight Management: - The patient reports having lost two more pounds since the last visit. - She has a goal to reduce her weight further by 60 pounds. - Current BMI is 31.3, indicating obesity. - The target weight is 190 pounds; she is currently 22 pounds away from this goal. - The patient is engaged in exercise, specifically walking, and is monitoring her diet. - Reports no issues with medication impacting weight management. Social History: - Exercising regularly, primarily walking. - Currently dieting and actively engaged in weight management efforts. - Under some stress due to her father's hospitalization. Family History: - Father is currently hospitalized and due for gallbladder surgery. His white blood cell count is elevated at 17. - Father is turning 70 years old. Problem List - Obesity - Weight management follow-up Patient Instructions - Continue walking as a form of exercise. - Maintain current dietary habits to assist with weight loss. - Return for a follow-up visit in one month. Medications: Refilled phentermine must administer 2 hours after breakfast 37.5 mg PO DAILY 30 caps 0RF topiramate (Topamax) 25 mg PO DAILY 30 tabs 0RF
== END 2025-03-07 12:03 | disposition home or self-care (01) ==
LOC: HO.HMCC 11:51
PROVIDERS: PCP Internal Medicine; Visit Provider Internal Medicine
DX: E66.811 Obesity, class 1 (principal); E66.09 Other obesity due to excess calories; Z68.33 Body mass index [BMI] 33.0-33.9, adult

== ENCOUNTER → 2025-03-07 11:50 | Outpatient (BNVA) | payer OTHER, SELFPAY | PROVIDERS: PCP Internal Medicine; Visit Provider Internal Medicine | DX: E66.811 Obesity, class 1 (principal); E66.09 Other obesity due to excess calories; Z68.31 Body mass index [BMI] 31.0-31.9, adult | CPT/HCPCS: 99212 ==

== ENCOUNTER 2025-04-06 08:23 | Outpatient (AMB) | payer OTHER, SELFPAY ==
[2025-04-06 08:27] VITALS: BP 120/80; PULSE 92; O2SAT 99; BMI 31.3
--- NOTE | 2025-04-06 08:27 | A.OFFPC_ITS ---
Vital Signs 04/06/25 08:27 Height 5 ft 9 in Weight 212 lb BMI 31.3 BP 120/80 Blood Pressure Location Lt brachial Position Sitting Pulse 92 Pulse Source Pulse Oximeter Pulse Oximetry (%) 99 Intake Visit Reasons: 4 weeks f/up Allergies No Known Allergies Allergy (Verified 04/06/25 08:27) Medication List - Last Reconciled 04/06/25 by Rosibel Gore MD cholecalciferol (vitamin D3) 25 mcg PO DAILY 90 days omeprazole 20 mg PO DAILY 90 days phentermine 37.5 mg PO DAILY topiramate (Topamax) 25 mg PO DAILY Tobacco use date assessed: 01/19/25 Dental Screening Dental Screen Date: 01/19/25 HPI 4 weeks f/up HPI Details History of Present Illness The patient is a 44-year-old female presenting with weight management issues. Weight Management: - The patient reports not losing any [place] ght despite efforts. - Consumes approximately 7048-8038 calor ies daily, reportedly focusing on vegetables, protein, and limiting portions. - Reports exercising, specifically walki ng at least five times a week. - Feels physically well and believes mus aure mass might be affecting weight perception. - Past weight loss attempts included usi monica the [employer] nevin, which the patient eventually ceased due to ineffectiveness in her opinion. Medications: - Topamax (Topiramate) - phentermine Social History: - Exercises regularly, walking five time s per week. - Engages in weight management through d ietary tracking of calories, with daily intake mentioned to be 3853-7193 calories focused on vegetables and proteins. - Reports a supportive family structure, feels proud and connected with her children. Problem List - Weight Management Difficulties Patient Instructions - Consider using a kitchen scale to accu rately measure food portions. - Accurately record calories from all co nsumed items, including beverages. - Report exercising at least five times weekly; continue this routine. - Continue dietary focus on vegetables a nd protein. - Ensure caloric intake calculations are precise to assist in weight management. Review of Systems - General: No fever no chills - Neurological: No headaches no dizziness - Ear nose throat: No sore throat no hearing difficulty no ear pain - Cardiovascular: No syncope, no chest pain, no palpitations - Gastrointestinal: No nausea vomiting or diarrhea - Endocrine: No polyuria polydipsia no heat intolerance - Genitourinary: No dysuria , no blood in urine Physical Exam - General: No acute distress - HEENT: No acute findings - Neck: Supple - Respiratory system: Able to talk in f ull sentences, no audible wheeze - Cardiovascular: S1-S2 regular in rate and rhythm - Gastrointestinal: No pain - Extremities: No new findings - FASHION COORDINATOR: Alert awake oriented x3 motor se nsory intact - Skin: Normal turgor PFSH Medical History Contact with and (suspected) exposure to other viral communicable diseases No known health problems Surgical History No pertinent past surgical history Social History Housing: House Alcohol intake: never Patient Tobacco Use Status: Former Tobacco user e-Cigarette/Vaping Use: Never Used service: No Current occupational status: employed Cognitive needs: No Hearing needs: No Vision needs: No Questionnaire Thrive Questionnaire Date Thrive assessed: 08/20/24 I am a: Patient What is your living situation today?: I have a steady place to live Within the past 12 months, did the food you bought not last and you didn't have the money to get more?: Never true Within the past 12 months, did you worry whether your food would run out before you got money to buy more?: Never true Do you have trouble paying for medicines?: No Do you have trouble getting transportation to medical appointments?: No Do you have trouble paying your heating and electricity bill?: No Do you have trouble taking care of your child, family member or friend?: No Do you have trouble with day-to-day activities such as bathing, preparing meals, shopping, managing finances, etc.?: No Are you currently unemployed and looking for a job?: No Are you interested in more education?: No Please select the resources that you would like help with: None Currently or been in a relationship where the following occur: No concerns reported THRIVE Score: 0 CORINE-7 AMB Questionnaire CORINE-7 Date CORINE - 7 assessed: 08/23/24 Source: Developed by Drs. Mega Agarwal, Jayashree B.W. Luisito Kimball and colleagues, with an educational nestor from [employer]. Physical exam (Primary Care) Vital Signs: Last Vital Signs Pulse 92 04/06/25 08:27 BP 120/80 04/06/25 08:27 Pulse Ox 99 04/06/25 08:27 BMI result Body Mass Index 31.3 Tobacco/Smoking Status: Tobacco use Status Tobacco use date assessed 01/19/25 04/06/25 08:31 Patient Tobacco Use Status Former Tobacco user 04/06/25 08:31 e-Cigarette/Vaping Use Never Used 04/06/25 08:31 Thrive Assessment: Date of Thrive Assessment Date Thrive assessed 08/20/24 04/06/25 08:31 Currently or been in a relationship where the following occur: No concerns reported Coding Level of Care Code Est Pt Level 3 (92751) Diagnoses Class 1 obesity due to excess calories without serious comorbidity with body mass index (BMI) of 33.0 to 33.9 in adult E66.811; E66.09; Z68.33 Obesity classification: adult class 1 (BMI 30 - 34.9) Serious obesity comorbidity presence: without serious comorbidity Body mass index: BMI 33.0-33.9 Assessment & Plan Assessment & Plan (1) Obesity due to excess calories: Code(s): E66.09 - Other obesity due to excess calories Category: Medical Qualifiers: Obesity classification: adult class 1 (BMI 30 - 34.9) Serious obesity comorbidity presence: without serious comorbidity Body mass index: BMI 33.0- 33.9 Qualified Code(s): E66.811 - Obesity, class 1; E66.09 - Other obesity due to excess calories; Z68.33 - Body mass index [BMI] 33.0-33.9, adult Plan History of Present Illness The patient is a 44-year-old female presenting with weight management issues. Weight Management: - The patient reports not losing any weight despite efforts. - Consumes approximately 3909-0120 calories daily, reportedly focusing on vegetables, protein, and limiting portions. - Reports exercising, specifically walking at least five times a week. - Feels physically well and believes muscle mass might be affecting weight perception. - Past weight loss attempts included using the [employer] nevin, which the patient eventually ceased due to ineffectiveness in her opinion. Medications: - Topamax (Topiramate) - phentermine Social History: - Exercises regularly, walking five times per week. - Engages in weight management through dietary tracking of calories, with daily intake mentioned to be 7326-2513 calories focused on vegetables and proteins. - Reports a supportive family structure, feels proud and connected with her children. Problem List - Weight Management Difficulties Patient Instructions - Consider using a kitchen scale to accurately measure food portions. - Accurately record calories from all consumed items, including beverages. - Report exercising at least five times weekly; continue this routine. - Continue dietary focus on vegetables and protein. - Ensure caloric intake calculations are precise to assist in weight management. Medications: Changed From topiramate (Topamax) 25 mg PO DAILY 30 tabs 0RF To topiramate 50 mg PO DAILY 30 tabs 0RF Refilled cholecalciferol (vitamin D3) 25 mcg PO DAILY 90 caps 0RF 90 days phentermine must administer 2 hours after breakfast 37.5 mg PO DAILY 30 caps 0RF
== END 2025-04-06 08:42 | disposition home or self-care (01) ==
LOC: HO.HMCC 08:24
PROVIDERS: PCP Internal Medicine; Visit Provider Internal Medicine
DX: E66.811 Obesity, class 1 (principal); E66.09 Other obesity due to excess calories; Z68.33 Body mass index [BMI] 33.0-33.9, adult

== ENCOUNTER → 2025-04-06 08:23 | Outpatient (BNVA) | payer OTHER, SELFPAY | PROVIDERS: PCP Internal Medicine; Visit Provider Internal Medicine | DX: E66.811 Obesity, class 1 (principal); E66.09 Other obesity due to excess calories; Z68.33 Body mass index [BMI] 33.0-33.9, adult | CPT/HCPCS: 99212 ==

== ENCOUNTER 2025-05-11 13:20 | Outpatient (AMB) | payer OTHER, SELFPAY ==
[2025-05-11 13:22] VITALS: BP 122/80; PULSE 86; O2SAT 100; BMI 30.7
--- NOTE | 2025-05-11 13:22 | A.OFFPC_ITS ---
Vital Signs 05/11/25 13:22 Height 5 ft 9 in Weight 208 lb BMI 30.7 BP 122/80 Blood Pressure Location Lt brachial Position Sitting Pulse 86 Pulse Source Pulse Oximeter Pulse Oximetry (%) 100 Intake Visit Reasons: 1m follow up Allergies No Known Allergies Allergy (Verified 05/11/25 13:23) Medication List - Last Reconciled 05/11/25 by Rosibel Gore MD cholecalciferol (vitamin D3) 25 mcg PO DAILY 90 days omeprazole 20 mg PO DAILY 90 days phentermine 37.5 mg PO DAILY topiramate 50 mg PO DAILY Tobacco use date assessed: 01/19/25 Dental Screening Dental Screen Date: 01/19/25 HPI 1m follow up HPI Details History of Present Illness The patient is a 44-year-old female presenting with weight management. Obesity: - The patient started the month at 219 p ounds and reported a current weight of 208 pounds, reflecting a decrease of 11 pounds overall. - Initial weight loss of 4 pounds from 2 12 to 208 was discussed during the visit. - The patient has been working on losing weight, particularly due to concerns about the difficulty of weight management during menopause. - Current medications include Topamax, w hich the patient believes has been helpful in her weight reduction efforts. - No associated symptoms such as chest p ains, palpitations, or shortness of breath were reported. Medications: - Pantopramine 37.5 mg for weight manage ment. - Topamax 50 mg for weight management, d [place] increased recently to aid in weight reduction. Problem List - Obesity Plan - Continue current medications: Pantopra mine 37.5 mg and Topamax 50 mg for weight management. - Encourage continuation of current weig ht loss efforts noting the 4-pound decrease, reinforcing the importance of reducing BMI below 30. - Discussed the patient's progress and m otivation for continued weight management, particularly regarding menopause. Review of Systems - General: No fever no chills - Neurological: No headaches no dizziness - Ear nose throat: No sore throat no hearing difficulty no ear pain - Cardiovascular: No syncope, no chest pain, no palpitations - Gastrointestinal: No nausea vomiting or diarrhea - Endocrine: No polyuria polydipsia no heat intolerance - Genitourinary: No dysuria , no blood in urine Physical Exam - General: No acute distress - HEENT: No acute findings - Neck: Supple - Respiratory system: Able to talk in f ull sentences, no audible wheeze - Cardiovascular: S1-S2 regular in rate and rhythm - Gastrointestinal: No pain - Extremities: No new findings - DIRECTOR OF COMMUNICATIONS: Alert awake oriented x3 motor in tact - Skin: Normal turgor [facility] Medical History Contact with and (suspected) exposure to other viral communicable diseases No known health problems Surgical History No pertinent past surgical history Social History Housing: House Alcohol intake: never Patient Tobacco Use Status: Former Tobacco user e-Cigarette/Vaping Use: Never Used service: No Current occupational status: employed Cognitive needs: No Hearing needs: No Vision needs: No Questionnaire PHQ-9 Over the last 2 weeks, how often have you been bothered by any of the following problems? 1. Little interest or pleasure in doing things: not at all 2. Feeling down, depressed, or hopeless: not at all 3. Trouble falling or staying asleep, or sleeping too much: not at all 4. Feeling tired or having little energy: not at all 5. Poor appetite or overeating: not at all 6. Feeling bad about yourself - or that you are a failure or have let yourself or your family down: not at all 7. Trouble concentrating on things, such as reading the newspaper or watching television: not at all 8. Moving or speaking so slowly that other people could have noticed. Or the opposite - being so fidgety or restless that you have been moving around a lot more than usual: not at all 9. Thoughts that you would be better off or of hurting yourself in some way: not at all Total score: 0 Depression Screening Interpretation: Negative Depression Screening Done: Yes [id number] - PHQ-9 Billing: Yes Source: Developed by Drs. Mega Agarwal, Jayashree Kimball, Luisito Beach and colleagues, with an educational nestor from [employer]. Thrive Questionnaire Date Thrive assessed: 08/20/24 I am a: Patient What is your living situation today?: I have a steady place to live Within the past 12 months, did the food you bought not last and you didn't have the money to get more?: Never true Within the past 12 months, did you worry whether your food would run out before you got money to buy more?: Never true Do you have trouble paying for medicines?: No Do you have trouble getting transportation to medical appointments?: No Do you have trouble paying your heating and electricity bill?: No Do you have trouble taking care of your child, family member or friend?: No Do you have trouble with day-to-day activities such as bathing, preparing meals, shopping, managing finances, etc.?: No Are you currently unemployed and looking for a job?: No Are you interested in more education?: No Please select the resources that you would like help with: None Currently or been in a relationship where the following occur: No concerns reported THRIVE Score: 0 AUDIT C Alcohol Use Questionnaire (AUDIT-C) 1. How often do you have a drink containing alcohol?: Monthly or less 2. How many drinks containing alcohol do you have on a typical day when you are drinking?: 1 or 2 3. How often do you have six or more drinks on one occasion?: Never Total Score: 1 CORINE-7 AMB Questionnaire CORINE-7 Date CORINE - 7 assessed: 08/23/24 Feeling nervous, anxious, or on edge: 0 = Not at all Not being able to stop or control worryin = Not at all Worrying too much about different things: 0 = Not at all Trouble relaxin = Not at all Being so restless that it is hard to sit still: 0 = Not at all Becoming easily annoyed or irritable: 0 = Not at all Feeling afraid as if something awful might happen: 0 = Not at all Total CORINE-7 score (0-4 normal; 5-9 mild; 10-14 moderate; 15-21 severe): 0 Source: Developed by Drs. Mega Agarwal, Jayashree Kimball, Luisito Beach and colleagues, with an educational nestor from [employer]. Physical exam (Primary Care) Vital Signs: Last Vital Signs Pulse 86 05/11/25 13:22 BP 122/80 05/11/25 13:22 Pulse Ox 100 05/11/25 13:22 BMI result Body Mass Index 30.7 Tobacco/Smoking Status: Tobacco use Status Tobacco use date assessed 01/19/25 05/11/25 13:23 Patient Tobacco Use Status Former Tobacco user 05/11/25 13:23 e-Cigarette/Vaping Use Never Used 05/11/25 13:23 PHQ-9: PHQ-9 Score PHQ-9: Total score 0 05/11/25 13:23 Depression Screening Interpretation: Negative Thrive Assessment: Date of Thrive Assessment Date Thrive assessed 08/20/24 05/11/25 13:23 Currently or been in a relationship where the following occur: No concerns reported Coding Level of Care Code Est Pt Level 3 (84292) Diagnoses Class 1 obesity due to excess calories without serious comorbidity with body mass index (BMI) of 33.0 to 33.9 in adult E66.811; E66.09; Z68.33 Obesity classification: adult class 1 (BMI 30 - 34.9) Serious obesity comorbidity presence: without serious comorbidity Body mass index: BMI 33.0-33.9 Additional Codes PHQ-9 - 15940 - PHQ-9 Billing: Yes ([id number]) Assessment & Plan Assessment & Plan (1) Obesity due to excess calories: Code(s): E66.09 - Other obesity due to excess calories Category: Medical Qualifiers: Obesity classification: adult class 1 (BMI 30 - 34.9) Serious obesity c omorbidity presence: without serious comorbidity Body mass index: BMI 33.0-33.9 Qualified Code(s): E66.811 - Obesity, class 1; E66.09 - Other obesity due to excess calories; Z68.33 - Body mass index [BMI] 33.0-33.9, adult Plan History of Present Illness The patient is a 44-year-old female presenting with weight management. Obesity: - The patient started the month at 219 pounds and reported a current weight of 208 pounds, reflecting a decrease of 11 pounds overall. - Initial weight loss of 4 pounds from 212 to 208 was discussed during the visit. - The patient has been working on losing weight, particularly due to concerns about the difficulty of weight management during menopause. - Current medications include Topamax, which the patient believes has been helpful in her weight reduction efforts. - No associated symptoms such as chest pains, palpitations, or shortness of b reath were reported. Medications: - Pantopramine 37.5 mg for weight management. - Topamax 50 mg for weight management, dosage increased recently to aid in weight reduction. Problem List - Obesity Plan - Continue current medications: Pantopramine 37.5 mg and Topamax 50 mg for weight management. - Encourage continuation of current weight loss efforts noting the 4-pound decrease, reinforcing the importance of reducing BMI below 30. - Discussed the patient's progress and motivation for continued weight management, particularly regarding menopause. Medications: Refilled topiramate 50 mg PO DAILY 30 tabs 0RF phentermine must administer 2 hours after breakfast 37.5 mg PO DAILY 30 caps 0RF
== END 2025-05-11 13:38 | disposition home or self-care (01) ==
LOC: HO.HMCC 13:21
PROVIDERS: PCP Internal Medicine; Visit Provider Internal Medicine
DX: E66.811 Obesity, class 1 (principal); E66.09 Other obesity due to excess calories; Z68.33 Body mass index [BMI] 33.0-33.9, adult

== ENCOUNTER → 2025-05-11 13:20 | Outpatient (BNVA) | payer OTHER, SELFPAY | PROVIDERS: PCP Internal Medicine; Visit Provider Internal Medicine | DX: E66.811 Obesity, class 1 (principal); E66.09 Other obesity due to excess calories; Z68.33 Body mass index [BMI] 33.0-33.9, adult | CPT/HCPCS: 96127; 99212 ==

== ENCOUNTER 2025-07-18 12:16 | Outpatient (AMB) | payer OTHER, SELFPAY ==
[2025-07-18 12:18] VITALS: BP 122/76; PULSE 81; O2SAT 98; BMI 31.5
--- NOTE | 2025-07-18 12:18 | MHC.PC.OV ---
Vital Signs 07/18/25 12:18 Height 5 ft 9 in Weight 213 lb BMI 31.5 BP 122/76 Blood Pressure Location Lt brachial Position Sitting Pulse 81 Pulse Source Pulse Oximeter Pulse Oximetry (%) 98 Intake Visit Reasons: weight management follow up Allergies No Known Allergies Allergy (Verified 07/18/25 12:18) Medication List - Last Reconciled 07/18/25 by Rosibel Gore MD cholecalciferol (vitamin D3) 25 mcg PO DAILY 90 days omeprazole 20 mg PO DAILY 90 days phentermine 37.5 mg PO DAILY topiramate 50 mg PO DAILY Tobacco use date assessed: 01/19/25 Dental Screening Dental Screen Date: 01/19/25 HPI HPI Comments History of Present Illness Details History of Present Illness The patient is a 44 year old female presenting for weight management follow-up and a new complaint of vaginal dryness. Weight Gain: - The patient's weight has increased from 208 pounds on May 11 to 213 pounds at the current visit. - She attributes the weight gain to and having stopped her weight-loss medication for a period. Vaginal Dryness: - The patient reports a new complaint of vaginal dryness, describing the sensation as just being dry and not lubricated. - Her menstrual periods have been irregular for a few months, with the last one occurring in January or February of this year. - She was previously seen at [facility], where lab work indicated she is in a perimenopausal state. - A Pap smear was performed at [facility] in February and was reported as normal. Medical History: - Perimenopause, as diagnosed by [facility]. Social History: - Reports recent weight gain attributed to holiday eating during . [facility] Medical History Contact with and (suspected) exposure to other viral communicable diseases No known health problems Surgical History No pertinent past surgical history Social History Housing: House Alcohol intake: never Patient Tobacco Use Status: Former Tobacco user e-Cigarette/Vaping Use: Never Used service: No Current occupational status: employed Cognitive needs: No Hearing needs: No Vision needs: No Questionnaire Thrive Questionnaire Date Thrive assessed: 08/20/24 I am a: Patient What is your living situation today?: I have a steady place to live Within the past 12 months, did the food you bought not last and you didn't have the money to get more?: Never true Within the past 12 months, did you worry whether your food would run out before you got money to buy more?: Never true Do you have trouble paying for medicines?: No Do you have trouble getting transportation to medical appointments?: No Do you have trouble paying your heating and electricity bill?: No Do you have trouble taking care of your child, family member or friend?: No Do you have trouble with day-to-day activities such as bathing, preparing meals, shopping, managing finances, etc.?: No Are you currently unemployed and looking for a job?: No Are you interested in more education?: No Currently or been in a relationship where the following occur: No concerns reported THRIVE Score: 0 CORINE-7 AMB Questionnaire CORINE-7 Date CORINE - 7 assessed: 08/23/24 Source: Developed by Drs. Mega Agarwal, Jayashree Kimball, Luisito Beach and colleagues, with an educational nestor from [employer]. Review of Systems Narrative Review of Systems - General: No fever no chills - Neurological: No headaches no dizziness - Ear nose throat: No sore throat no hearing difficulty no ear pain - Cardiovascular: No syncope, no chest pain, no palpitations - Gastrointestinal: No nausea vomiting or diarrhea - Endocrine: No polyuria polydipsia no heat intolerance - Genitourinary: No dysuria , no blood in urine Physical exam (Primary Care) Vital Signs: Last Vital Signs Pulse 81 07/18/25 12:18 BP 122/76 07/18/25 12:18 Pulse Ox 98 07/18/25 12:18 BMI result Body Mass Index 31.5 Tobacco/Smoking Status: Tobacco use Status Tobacco use date assessed 01/19/25 07/18/25 12:18 Patient Tobacco Use Status Former Tobacco user 07/18/25 12:18 e-Cigarette/Vaping Use Never Used 07/18/25 12:18 Thrive Assessment: Date of Thrive Assessment Date Thrive assessed 08/20/24 07/18/25 12:18 Currently or been in a relationship where the following occur: No concerns reported Narrative Physical Exam - General: No acute distress - HEENT: No acute findings - Neck: Supple - Respiratory system: Able to talk in full sentences, no audible wheeze - Cardiovascular: S1-S2 regular in rate and rhythm - Gastrointestinal: No pain - Extremities: No new findings - SEISMOGRAPHER: Alert awake oriented x3 motor intact - Skin: Normal turgor Coding Level of Care Code Est Pt Level 3 (36435) Diagnoses Class 1 obesity due to excess calories without serious comorbidity with body mass index (BMI) of 33.0 to 33.9 in adult E66.811; E66.09; Z68.33 Obesity classification: adult class 1 (BMI 30 - 34.9) Serious obesity comorbidity presence: without serious comorbidity Body mass index: BMI 33.0-33.9 Perimenopausal N95.1 Vaginal dryness during intercourse N89.8 Assessment & Plan Assessment & Plan (1) Obesity due to excess calories: Code(s): E66.09 - Other obesity due to excess calories Category: Medical Qualifiers: Obesity classification: adult class 1 (BMI 30 - 34.9) Serious obesity comorbidity presence: without serious comorbidity Body mass index: BMI 33.0-33.9 Qualified Code(s): E66.811 - Obesity, class 1; E66.09 - Other obesity due to excess calories; Z68.33 - Body mass index [BMI] 33.0-33.9, adult (2) Perimenopausal: Code(s): N95.1 - Menopausal and female climacteric states Category: Medical (3) Vaginal dryness during intercourse: Code(s): N89.8 - Other specified noninflammatory disorders of vagina Category: Medical Plan Problem List - Weight gain - Vaginal dryness - Perimenopause - Preventative care: Pap smear discussed Plan - The dose of Topamax will be increased to 100 mg once daily in the morning for weight management, with a trial for another month. - If there is no weight change with the adjusted dose, the medication will be discontinued. - The patient was advised to follow up with [facility] to discuss her vaginal dryness, as they performed the initial lab work. - The patient was instructed to ask [facility] to forward all relevant medical records, including Pap smear and lab results. - Estrogen vaginal cream is not recommended at this time - The use of [id number] lubricants for sexual intercourse was recommended if needed. Medications: Changed From topiramate 50 mg PO DAILY 30 tabs 0RF To topiramate 100 mg PO DAILY 30 tabs 0RF 30 days Refilled topiramate 50 mg PO DAILY 30 tabs 0RF phentermine must administer 2 hours after breakfast 37.5 mg PO DAILY 30 caps 0RF
== END 2025-07-18 12:35 | disposition home or self-care (01) ==
LOC: HO.HMCC 12:17
PROVIDERS: PCP Internal Medicine; Visit Provider Internal Medicine
DX: E66.811 Obesity, class 1 (principal); E66.09 Other obesity due to excess calories; Z68.33 Body mass index [BMI] 33.0-33.9, adult; N95.1 Menopausal and female climacteric states; N89.8 Other specified noninflammatory disorders of vagina

== ENCOUNTER → 2025-07-18 12:16 | Outpatient (BNVA) | payer OTHER, SELFPAY | PROVIDERS: PCP Internal Medicine; Visit Provider Internal Medicine | DX: E66.811 Obesity, class 1 (principal); E66.09 Other obesity due to excess calories; N95.1 Menopausal and female climacteric states; N89.8 Other specified noninflammatory disorders of vagina; Z68.31 Body mass index [BMI] 31.0-31.9, adult | CPT/HCPCS: 99212 ==